=== PATIENT | female | born 1950 | race Caucasian/White ===

== ENCOUNTER 2017-09-06 20:25 | Emergency (ER) | payer BC, MEDICARE ==
--- NOTE | 2017-09-06 21:59 | ER Document Report ---
ED Medical Screen (RME) - General Chief Complaint: High Blood Sugar Stated Complaint: POSSIBLE HIGH GLUCOSE Time Seen by Provider: 09/06/17 21:56 Notes: 67-year-old female, chief complaint of accidentally taking the wrong insulin, she states she normally takes 50 units of Lantus and then takes NovoLog at meals , she states that she took her 50 units of Lantus but then excellently took an additional 50 units of Lantus instead of taking her NovoLog, checked her sugar and found it was almost 500, took 25 more of NovoLog, now she has no idea where sugar is. She denies nausea vomiting, dizziness, lightheadedness. She states also earlier this morning she slipped and fell on her buttocks. She states she might have bumped her head, denies headache, passing out, loss of consciousness , she states the only area of pain she has is in her lower back at this time. She denies numbness, incontinence. TRAVEL OUTSIDE OF THE [place] IN LAST 30 DAYS: No - Related Data Allergies/Adverse Reactions: Sulfa (Sulfonamide Antibiotics) Allergy (Verified 03/17/16 12:29) celecoxib [From Celebrex] Adverse Reaction (Intermediate, Verified 03/17/16 12: 29) Hives Past Medical History - Past Medical History Cardiac Medical History: Reports: Hx Hypercholesterolemia Denies: Hx Coronary Artery Disease, Hx Heart Attack, Hx Hypertension Pulmonary Medical History: Denies: Hx Asthma, Hx Bronchitis, Hx COPD, Hx Pneumonia, Hx Tuberculosis Neurological Medical History: Denies: Hx Cerebrovascular Accident, Hx Seizures Endocrine Medical History: Reports: Hx Diabetes Mellitus Type 1, 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 GI Medical History: Reports: Hx Gastroesophageal Reflux Disease Musculoskeltal Medical History: Reports Hx Arthritis - all joints Psychiatric Medical History: Reports: Hx Depression Infectious Medical History: Past Surgical History: Reports: Hx Hysterectomy, Hx Orthopedic Surgery - ankle and knee surgery - Immunizations Hx Diphtheria, Pertussis, Tetanus Vaccination: Yes Physical Exam - Vital signs Vitals: Temp Pulse Resp BP Pulse Ox 98.0 F 90 20 156/88 H 98 09/06/17 20:40 09/06/17 20:40 09/06/17 20:40 09/06/17 20:40 09/06/17 20:40 - General General appearance: Appears well In distress: None - Back Back: Tender - Generalized tenderness in the lumbar area, nonspecific, no saddle anesthesia, normal distal neurovascular exam, ambulates without difficulty Course - Vital Signs Vital signs: Temp Pulse Resp BP Pulse Ox 98.0 F 90 20 156/88 H 98 09/06/17 20:40 09/06/17 20:40 09/06/17 20:40 09/06/17 20:40 09/06/17 20:40 Doctor's Discharge - Discharge Referrals: JOVAN GORMAN MD [Primary Care Provider] - Follow up as needed
[2017-09-06 22:39] LABS: ABSOLUTE BASOPHILS # (AUTO) 0.1 10^3/uL (0.0-0.2); ABSOLUTE EOSINOPHILS # (AUTO) 0.5 10^3/uL (0.0-0.6); ABSOLUTE LYMPHOCYTES (AUTO) 2.3 10^3/uL (0.5-4.7); ABSOLUTE MONOCYTES (AUTO) 0.7 10^3/uL (0.1-1.4); ABSOLUTE NEUT (AUTO) 3.6 10^3/uL (1.7-8.2); BASOPHILS % (AUTO) 1.1 % (0-2); EOSINOPHILS % (AUTO) 6.8 % (0-6); HEMATOCRIT 42.8 % (36.0-47.0); HEMOGLOBIN 15.2 g/dL (12.0-15.5); LYMPHOCYTES % (AUTO) 31.8 % (13-45); MEAN CORPUSCULAR HEMOGLOBIN 30.6 pg (27.0-33.4); MEAN CORPUSCULAR HGB CONC 35.4 g/dL (32.0-36.0); MEAN CORPUSCULAR VOLUME 86 fl (80-97); MONOCYTES % (AUTO) 9.2 % (3-13); PLATELET COUNT 298 10^3/uL (150-450); RED BLOOD COUNT 4.96 10^6/uL (3.72-5.28); RED CELL DISTRIBUTION WIDTH 12.9 % (11.5-14.0); SEGMENTED NEUTROPHILS % (AUTO) 51.1 % (42-78); TOTAL CELLS COUNTED % (AUTO) 100 %; WHITE BLOOD COUNT 7.1 10^3/uL (4.0-10.5)
--- NOTE | 2017-09-06 22:43 | ER Document Report ---
ED Blood Sugar Problem - General Chief Complaint: High Blood Sugar Stated Complaint: POSSIBLE HIGH GLUCOSE Time Seen by Provider: 09/06/17 21:56 Notes: 67-year-old female patient emergency department chief complaint of blood sugar issues. Patient has history of diabetes. Takes long-acting insulin as well as short-acting insulin. Recently she had a change of her prescription. She was taking the long-acting insulin and a pen form but was switched to a bottle dispensing. Got her short acting and long-acting insulin mixed up. Ended up taking 80 units of long-acting insulin instead of her 50 units. Patient was concerned that she may have low blood sugar and is afraid to go to sleep. Currently her blood sugar is reading high. She did inject the additional 30 units at 4 PM today. Denies any other major symptoms other than feeling a little bit dizzy. Denies any chest pain, shortness of breath, fever, other issues at this time. TRAVEL OUTSIDE OF THE [place] IN LAST 30 DAYS: No - HPI Onset: This afternoon - Related Data Allergies/Adverse Reactions: Sulfa (Sulfonamide Antibiotics) Allergy (Verified 03/17/16 12:29) celecoxib [From Celebrex] Adverse Reaction (Intermediate, Verified 03/17/16 12: 29) Hives Past Medical History - General Information source: Patient - Social History Smoking Status: Unknown if Ever Smoked Cigarette use (# per day): No Frequency of alcohol use: None Drug Abuse: None Lives with: Alone Family History: Reviewed & Not Pertinent - Past Medical History Cardiac Medical History: Reports: Hx Hypercholesterolemia Denies: Hx Coronary Artery Disease, Hx Heart Attack, Hx Hypertension Pulmonary Medical History: Denies: Hx Asthma, Hx Bronchitis, Hx COPD, Hx Pneumonia, Hx Tuberculosis Neurological Medical History: Denies: Hx Cerebrovascular Accident, Hx Seizures Endocrine Medical History: Reports: Hx Diabetes Mellitus Type 1, 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 GI Medical History: Reports: Hx Gastroesophageal Reflux Disease Musculoskeltal Medical History: Reports Hx Arthritis - all joints Psychiatric Medical History: Reports: Hx Depression Infectious Medical History: Past Surgical History: Reports: Hx Hysterectomy, Hx Orthopedic Surgery - ankle and knee surgery - Immunizations Hx Diphtheria, Pertussis, Tetanus Vaccination: Yes Hx Pneumococcal Vaccination: 12/26/10 Review of Systems - Review of Systems Constitutional: No symptoms reported EENT: No symptoms reported Cardiovascular: No symptoms reported Respiratory: No symptoms reported Gastrointestinal: No symptoms reported Genitourinary: No symptoms reported Female Genitourinary: No symptoms reported Musculoskeletal: No symptoms reported Skin: No symptoms reported Hematologic/Lymphatic: No symptoms reported Neurological/Psychological: No symptoms reported Physical Exam - Vital signs Vitals: Temp Pulse Resp BP Pulse Ox 98.0 F 90 20 156/88 H 98 09/06/17 20:40 09/06/17 20:40 09/06/17 20:40 09/06/17 20:40 09/06/17 20:40 Interpretation: Normal - General General appearance: Appears well, Alert - HEENT Head: Normocephalic, Atraumatic Eyes: Normal Pupils: PERRL - Respiratory Respiratory status: No respiratory distress Chest status: Nontender Breath sounds: Normal Chest palpation: Normal - Cardiovascular Rhythm: Regular Heart sounds: Normal auscultation Murmur: No - Abdominal Inspection: Normal Distension: No distension Bowel sounds: Normal Tenderness: Nontender Organomegaly: No organomegaly - Back Back: Normal, Nontender - Extremities General upper extremity: Normal inspection, Nontender, Normal color, Normal ROM , Normal temperature General lower extremity: Normal inspection, Nontender, Normal color, Normal ROM , Normal temperature, Normal weight bearing. No: Dean's sign - Neurological Neuro grossly intact: Yes Cognition: Normal Orientation: AAOx4 Gianni Coma Scale Eye Opening: Spontaneous [place] Coma Scale Verbal: Oriented Gianni Coma Scale Motor: Obeys Commands Gianni Coma Scale Total: 15 Speech: Normal Motor strength normal: LUE, RUE, LLE, RLE Sensory: Normal - Psychological Associated symptoms: Normal affect, Normal mood - Skin Skin Temperature: Warm Skin Moisture: Dry Skin Color: Normal Course - Re-evaluation Re-evalutation: 67-year-old female patient with concerns for accidental overdose of her Lantus. Patient is 6 hours after injection and blood sugar still 346. Unlikely patient is suffering from any significant hypoglycemic spells. Patient is awake and alert in no acute distress. Review of the x-rays of her L-spine unremarkable. Patient has her own glucometer with appropriate amount of lancets as well as test strips. Patient states that she is comfortable checking her own blood sugar tonight. At this time I would encourage her to continue to eat and drink as normal. If blood sugar begins to drop she should drink juice and eat carbs. Patient is okay with this plan. Do not feel patient needs to be admitted for observation as patient's blood sugar is quite elevated unlikely to drop precipitously. Patient is comfortable with this plan. Now concerns in my mind at this time for DKA. 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 It would probably be smith to go ahead and have a snack at this time before you go to bed. An appropriate snack at this time would be something containing carbohydrates. Maybe a peanut butter sandwich and a glass of milk or juice. Your blood sugar currently is high in the 340 range. I believe you will be fine throughout the night and night. I would not be overly concerned about hypoglycemia, however due to the slight increase in the long-acting insulin today it would be smith to check your blood sugar at least every 4 hours. If blood sugars are still elevated in the morning I would resume your regular insulin schedule. If Blood sugars begin to drop under 100 you should check your blood sugar every hour and have another snack. If unable to get your blood sugar to go up please return or call 911. Referrals: JOVAN GORMAN MD [Primary Care Provider] - Follow up as needed
[2017-09-06 23:04] LABS: ANION GAP 12 (5-19); BLOOD UREA NITROGEN 21 mg/dL (7-20); CALCIUM 10.1 mg/dL (8.4-10.2); CARBON DIOXIDE 28 mmol/L (22-30); CHLORIDE 102 mmol/L (98-107); GLUCOSE 346 mg/dL (75-110); POTASSIUM 3.8 mmol/L (3.6-5.0)
[2017-09-06] MEDS ORDERED: ACETAMINOPHEN 325 MG TABLET PO ONE (23:29)
[2017-09-07 00:02] VITALS: BP 173/83
[2017-09-07 00:02] LABS: APPEARANCE,URINE CLEAR; BILIRUBIN,URINE NEGATIVE (NEGATIVE); COLOR,URINE YELLOW; GLUCOSE, URINE >=500 mg/dL (NEGATIVE); KETONES,URINE NEGATIVE (NEGATIVE); LEUKOCYTE ESTERASE,URINE NEGATIVE (NEGATIVE); NITRITE,URINE NEGATIVE (NEGATIVE); PROTEIN,URINE NEGATIVE (NEGATIVE); URINE SPECIFIC GRAVITY 1.027; UROBILINOGEN,URINE NEGATIVE mg/dL (<2.0)
--- NOTE | 2017-09-07 08:12 | RADIOLOGY REPORT (SQ) ---
EXAM DESCRIPTION: L SPINE WHOLE COMPLETED DATE/TIME: 09/06/2017 10:30 pm REASON FOR STUDY: fall, pain COMPARISON: None. NUMBER OF VIEWS: Five views including obliques. TECHNIQUE: AP, lateral, oblique, and sacral radiographic images acquired of the lumbar spine. LIMITATIONS: None. FINDINGS: MINERALIZATION: Normal. SEGMENTATION: Normal. No transitional anatomy. ALIGNMENT: Normal. VERTEBRAE: Maintained height. No fracture or worrisome bone lesion. DISCS: Preserved height. No significant osteophytes or end plate irregularity. POSTERIOR ELEMENTS: Pedicles and facets are intact. No pars defect or posterior arch defects. Degen erative changes are identified in the facet articulations at the L4 and L5 levels. HARDWARE: None in the spine. PARASPINAL SOFT TISSUES: Normal. PELVIS: Intact as visualized. No fractures or worrisome bone lesions. Bony sclerosis is identified a t the level of the SI joints consistent with degenerative changes. OTHER: No other significant finding. IMPRESSION: No significant vertebral compression or disc space reduction. No evidence for fracture. Degenerative changes as noted above TECHNICAL DOCUMENTATION: JOB ID: [id number]- All Rights Reserved Reading location - IP/workstation name: [email or web address]
== END 2017-09-07 00:16 | disposition home or self-care (01) ==
LOC: ER 20:25
DX: E11.9 Type 2 diabetes mellitus without complications (principal); Z79.4 Long term (current) use of insulin; R42 Dizziness and giddiness; E78.00 Pure hypercholesterolemia, unspecified; K21.9 Gastro-esophageal reflux disease without esophagitis; Z88.2 Allergy status to sulfonamides; Z90.710 Acquired absence of both cervix and uterus
CPT/HCPCS: 99284; 36415; 82962; 85025; 80048; 81001; 72110; A9270

== ENCOUNTER 2017-12-04 03:23 | Inpatient (IN) | payer MEDICARE, MEDICAID ==
[2017-12-04] MEDS ORDERED: NORMAL SALINE 1000 ML 1,000 ML IV ONE ×2 (03:54→04:48)
[2017-12-04] MEDS ORDERED: HYDROMORPHONE HCL INJ/PF 2 MG/ML AMPULE IV ONE ×2 (03:54→06:25)
[2017-12-04] MEDS ORDERED: ONDANSETRON HCL INJ/PF 4 MG/2 ML SDV IV ONE (03:54)
--- NOTE | 2017-12-04 03:57 | ER Document Report ---
ED GI/ - General Mode of Arrival: Ambulatory Information source: Patient TRAVEL OUTSIDE OF THE [place] IN LAST 30 DAYS: No <RODRIGO BAKER - Last Filed: 12/04/17 03:53> <NATI ELLISON - Last Filed: 12/04/17 06:27> - General Chief Complaint: Nausea/Vomiting Stated Complaint: NAUSEA/VOMITING Time Seen by Provider: 12/04/17 03:46 Notes: 67-year-old female that presents to the emergency department today with complaints of vomiting with associated abdominal pain. Patient states that at about 2000 last night she began vomiting and her "stomach was hard". Patient states that after vomiting approximately 8 times she developed this right-sided abdominal pain. Patient states she had a bowel movement 90 minutes prior to arrival which was "a little hard" but seemingly normal. Patient denies any fevers. (RODRIGO BAKER) - Related Data Allergies/Adverse Reactions: Sulfa (Sulfonamide Antibiotics) Allergy (Verified 03/17/16 12:29) celecoxib [From Celebrex] Adverse Reaction (Intermediate, Verified 03/17/16 12: 29) Hives Past Medical History - General Information source: Patient, [facility] Records - Social History Smoking Status: Never Smoker Cigarette use (# per day): No Frequency of alcohol use: None Drug Abuse: None Lives with: Family Family History: Reviewed & Not Pertinent - Past Medical History Cardiac Medical History: Reports: Hx Hypercholesterolemia Endocrine Medical History: Reports: 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 GI Medical History: Reports: Hx Gastroesophageal Reflux Disease Musculoskeletal Medical History: Reports Hx Arthritis - all joints Psychiatric Medical History: Reports: Hx Depression Infectious Medical History: Past Surgical History: Reports: Hx Hysterectomy, Hx Orthopedic Surgery - ankle and bilateral knee replacements surgery - Immunizations Hx Diphtheria, Pertussis, Tetanus Vaccination: Yes Hx Pneumococcal Vaccination: 12/26/10 <RODRIGO BAKER - Last Filed: 12/04/17 03:53> Review of Systems - Review of Systems Constitutional: denies: Fever EENT: No symptoms reported Cardiovascular: No symptoms reported Respiratory: No symptoms reported Gastrointestinal: See HPI, Abdominal pain, Nausea, Vomiting. denies: Diarrhea Genitourinary: No symptoms reported Female Genitourinary: No symptoms reported Musculoskeletal: No symptoms reported Skin: No symptoms reported Hematologic/Lymphatic: No symptoms reported Neurological/Psychological: No symptoms reported -: Yes All other systems reviewed and negative <RODRIGO BAKER - Last Filed: 12/04/17 03:53> Physical Exam <RODRIGO BAKER - Last Filed: 12/04/17 03:53> <NATI ELLISON - Last Filed: 12/04/17 06:27> - Vital signs Vitals: Temp Pulse Resp BP Pulse Ox 97.6 F 86 18 155/87 H 97 12/04/17 03:29 12/04/17 03:29 12/04/17 03:29 12/04/17 03:29 12/04/17 03:29 - Notes Notes: Physical Exam: General: Alert, appears mildly uncomfortable. HEENT: Normocephalic. Atraumatic. PERRL. Extraocular movements intact. Oropharynx clear. Dry mucous membranes. Neck: Supple. Non-tender. Respiratory: No respiratory distress. Clear and equal breath sounds bilaterally. Cardiovascular: Regular rate and rhythm. Abdominal: Obese. Right sided abdominal tenderness from the RUQ down to the RLQ , all starting after vomiting several times. No distension. Normal Bowel Sounds. Back: Non-tender. No deformity or step off. Extremities: Moves all four extremities. Upper extremities: Normal inspection. Normal ROM. Lower extremities: Normal inspection. No edema. Normal ROM. Neurological: Normal cognition. AAOx4. Normal speech. Psychological: Normal affect. Normal Mood. Skin: Warm. Dry. Normal color. (RODRIGO BAKER) Course <RODRIGO BAKER - Last Filed: 12/04/17 03:53> - Laboratory Result Diagrams: 12/04/17 03:46 12/04/17 03:46 - Diagnostic Test Radiology reviewed: Image reviewed, Reports reviewed - Appendicolith with distended inflamed appendix. Acute appendicitis. - EKG Interpretation by Me EKG shows normal: Sinus rhythm, [place], Intervals, QRS Complexes, ST-T Waves Rate: Normal - 82 Rhythm: NSR [place]/QRS: LAHB/LAFB Voltage: Consistant with LVH When compared to previous EKG there are: No significant change - Consults Dr. Rodriguez Time consulted: 06:10 Consulted provider: will see as inpatient - Dr. ariana Herbert requests I have the hospitalist see the patient and admit her and start her medical management prior to surgery this morning. Dr. Griffiths Time consulted: 06:15 Consulted provider: will come to ER - I did explain to Dr. Griffiths that doctor ariana Herbert had requested that the hospitalist admit the patient and begin her medical management prior to her going to the operating room. <NATI ELLISON - Last Filed: 12/04/17 06:27> - Re-evaluation Re-evalutation: 12/04/17 06:26 The patient has acute appendicitis. Her last meal was about 1 PM yesterday afternoon which is now 17 hours ago, and she has been vomiting and having dry heaves quite a lot since then. (NATI ELLISON) - Vital Signs Vital signs: Temp Pulse Resp BP Pulse Ox 97.6 F 86 20 173/85 H 98 12/04/17 03:29 12/04/17 03:29 12/04/17 05:01 12/04/17 05:01 12/04/17 05:01 - Laboratory Laboratory results interpreted by me: 12/04/17 12/04/17 12/04/17 03:43 03:46 03:46 WBC 18.2 H Hgb 16.2 H Seg Neutrophils % 84.3 H Lymphocytes % 9.2 L Absolute Neutrophils 15.3 H Carbon Dioxide 21 L BUN 21 H Est GFR (Non-Af Amer) 53 L Glucose 424 H* Hemoglobin A1c % Urine Glucose (UA) >=500 H Urine Ketones 20 H 12/04/17 03:46 WBC Hgb Seg Neutrophils % Lymphocytes % Absolute Neutrophils Carbon Dioxide BUN Est GFR (Non-Af Amer) Glucose Hemoglobin A1c % 10.1 H Urine Glucose (UA) Urine Ketones Discharge <RODRIGO BAKER - Last Filed: 12/04/17 03:53> <NATI ELLISON - Last Filed: 12/04/17 06:27> - Discharge Clinical Impression: Poorly controlled diabetes mellitus, High blood pressure associated with diabetes Appendicitis Qualifiers: Appendicitis type: acute appendicitis Acute appendicitis type: unspecified acute appendicitis type Qualified Code(s): K35.80 - Unspecified acute appendicitis Leukocytosis Qualifiers: Leukocytosis type: unspecified Qualified Code(s): D72.829 - Elevated white blood cell count, unspecified Hyperglycemia due to type 2 diabetes mellitus Qualifiers: Diabetes mellitus terminal make up operator insulin use: with terminal make up operator use Qualified Code(s): E11.65 - Type 2 diabetes mellitus with hyperglycemia Condition: Stable Referrals: [facility] [Provider Group] - Follow up as needed Scribe Attestation: 12/04/17 04:50 I personally performed the services described in the documentation, reviewed and edited the documentation which was dictated to the scribe in my presence, and it accurately records my words and actions. (NATI ELLISON) Scribe Documentation - Scribe Written by Scribe:: Arlene Malhotra, 12/04/2017 [id number] acting as scribe for :: Isaac <RODRIGO BAKER - Last Filed: 12/04/17 03:53>
[2017-12-04 04:02] LABS: ABSOLUTE BASOPHILS # (AUTO) 0.1 10^3/uL (0.0-0.2); ABSOLUTE EOSINOPHILS # (AUTO) 0.1 10^3/uL (0.0-0.6); ABSOLUTE LYMPHOCYTES (AUTO) 1.7 10^3/uL (0.5-4.7); ABSOLUTE MONOCYTES (AUTO) 1.1 10^3/uL (0.1-1.4); ABSOLUTE NEUT (AUTO) 15.3 10^3/uL (1.7-8.2); BASOPHILS % (AUTO) 0.3 % (0-2); EOSINOPHILS % (AUTO) 0.4 % (0-6); HEMATOCRIT 45.9 % (36.0-47.0); HEMOGLOBIN 16.2 g/dL (12.0-15.5); LYMPHOCYTES % (AUTO) 9.2 % (13-45); MEAN CORPUSCULAR HEMOGLOBIN 30.6 pg (27.0-33.4); MEAN CORPUSCULAR HGB CONC 35.3 g/dL (32.0-36.0); MEAN CORPUSCULAR VOLUME 87 fl (80-97); MONOCYTES % (AUTO) 5.8 % (3-13); PLATELET COUNT 350 10^3/uL (150-450); RED BLOOD COUNT 5.28 10^6/uL (3.72-5.28); RED CELL DISTRIBUTION WIDTH 13.1 % (11.5-14.0); SEGMENTED NEUTROPHILS % (AUTO) 84.3 % (42-78); TOTAL CELLS COUNTED % (AUTO) 100 %; WHITE BLOOD COUNT 18.2 10^3/uL (4.0-10.5)
[2017-12-04 04:13] LABS: APPEARANCE,URINE CLEAR; BILIRUBIN,URINE NEGATIVE (NEGATIVE); COLOR,URINE YELLOW; GLUCOSE, URINE >=500 mg/dL (NEGATIVE); KETONES,URINE 20 mg/dL (NEGATIVE); LEUKOCYTE ESTERASE,URINE NEGATIVE (NEGATIVE); NITRITE,URINE NEGATIVE (NEGATIVE); PROTEIN,URINE NEGATIVE (NEGATIVE); URINE SPECIFIC GRAVITY 1.015; UROBILINOGEN,URINE NEGATIVE mg/dL (<2.0)
[2017-12-04 04:40] LABS: ALANINE AMINOTRANSFERASE 27 U/L (9-52); ALBUMIN 4.4 g/dL (3.5-5.0); ALKALINE PHOSPHATASE 74 U/L (38-126); ANION GAP 18 (5-19); ASPARTATE AMINO TRANSFERASE 23 U/L (14-36); BILIRUBIN,DIRECT 0.4 mg/dL (0.0-0.4); BILIRUBIN,TOTAL 0.9 mg/dL (0.2-1.3); BLOOD UREA NITROGEN 21 mg/dL (7-20); CALCIUM 10.1 mg/dL (8.4-10.2); CARBON DIOXIDE 21 mmol/L (22-30); CHLORIDE 98 mmol/L (98-107); CREATINE KINASE 45 U/L (30-135); POTASSIUM 4.3 mmol/L (3.6-5.0); TOTAL PROTEIN 7.3 g/dL (6.3-8.2)
[2017-12-04 04:48] LABS: GLUCOSE 424 mg/dL (75-110)
[2017-12-04 04:51] LABS: CREATINE KINASE MB 0.53 ng/mL (<4.55)
[2017-12-04 04:53] LABS: TROPONIN I < 0.012 ng/mL
[2017-12-04] MEDS ORDERED: PIPERACILLIN/TAZOBACTAM 3.375 GM VIAL IV ONE (06:04)
[2017-12-04] MEDS ORDERED: INSULIN REG, HUMAN 100 UNIT/ML 3 ML VIAL (PYX) IV ONE (06:13)
--- NOTE | 2017-12-04 06:20 | RADIOLOGY REPORT (SQ) ---
CLINICAL DATA: 67-year-old female with diffuse abdominal pain TECHNICAL DATA: Axial CT imaging of the abdomen and pelvis was performed without intravenous contrast. Sagittal and coronal reconstructed images were then performed. The CT study is performed according to ALARA (as low as reasonably achievable) or ALARA/IMAGE GENTLY, with automatic adjustment of mA and/or kV according to patient size. Comparison: None FINDINGS: Lung bases: The lung bases are clear. Liver:The liver is normal in size and configuration. No focal hepatic abnormalities are identified. Liver attenuation is within normal limits on this unenhanced study. Spleen:The spleen is normal is size, configuration and attenuation. No focal splenic abnormalities are appreciated on this unenhanced scan. Gallbladder and bile duct: The gallbladder is surgically absent. There is no biliary ductal dilatation. Pancreas: The pancreas is grossly normal in size and configuration. Adrenal Glands:The adrenal glands are normal in size and configuration. Kidneys:The kidneys are normal in size and configuration. There is no evidence of hydronephrosis. There are calcifications associated with both kidneys which appear to be vascular in nature. No ignacia nephrolithiasis is identified. No definite solid or cystic renal mass lesions are identified on this unenhanced study. Stomach:The stomach is grossly normal. There is a very small hiatal hernia. Bowel:The bowel gas pattern is non specific and non obstructive. There is a mildly distended loop of small bowel in the right hemiabdomen likely related to a localized ileus. Appendix: There is a dilated tubular fluid-filled structure in the right lower quadrant posterior to the cecum with surrounding mesenteric inflammation consistent with acute appendicitis. There are radiopaque densities as well as lucencies within the appendiceal lumen likely representing appendicoliths. The appendix measures 1.4 cm in diameter. Free air:There is no evidence of free air. Free fluid: There is no evidence of free fluid. Vasculature: The aorta is normal in caliber and contour. The inferior vena cava is grossly unremarkable. There are mild atherosclerotic calcifications along the abdominal aorta and iliac arteries. Lymphadenopathy: No pathologic lymphadenopathy is identified. Bladder: The bladder is well distended and smooth in contour. Reproductive: The uterus is surgically absent. Bones: No acute osseous abnormalities are identified. Soft tissues: No focal soft tissue abnormalities are identified. IMPRESSION: 1. CT findings consistent with acute appendicitis as described above. There is no evidence of periappendiceal abscess or rupture. Appendicoliths are noted within the appendiceal lumen. 2. Remote cholecystectomy and hysterectomy. These critical findings were discussed with Dr. Gray on 12/04/2017 at approximately 5:10 AM central time
[2017-12-04] MEDS ORDERED: BUPIVACAINE HCL 0.5 % INJ/PF 30 ML SDV ONE (07:32)
[2017-12-04] MEDS ORDERED: NORMAL SALINE 1000 ML 1,000 ML IV PRN ×2 (07:42→08:41)
[2017-12-04] MEDS ORDERED: ACETAMINOPHEN 325 MG TABLET PO PRN (07:42)
[2017-12-04] MEDS ORDERED: ONDANSETRON HCL INJ/PF 4 MG/2 ML SDV IV PRN ×3 (07:42→11:01)
[2017-12-04] MEDS ORDERED: DEXTROSE 50%-WATER 25 GM/50 ML DISP.SYRIN IV PRN ×3 (07:48→08:35)
[2017-12-04] MEDS ORDERED: DEXTROSE 40% GEL 15 GM TUBE PO PRN ×3 (07:48→08:35)
[2017-12-04] MEDS ORDERED: GLUCAGON,HUMAN RECOMB 1 MG INJ IM PRN (07:48)
[2017-12-04] MEDS ORDERED: HUM INSULIN NPH/REG INSULIN HM 100 UNIT/1 ML 3 ML SUBCUT ONE (07:50)
[2017-12-04] MEDS ORDERED: ATORVASTATIN CALCIUM 40 MG TABLET PO SCH (08:00)
--- NOTE | 2017-12-04 08:31 | EKG REPORT ---
SEVERITY:- ABNORMAL ECG - SINUS RHYTHM LEFT ANTERIOR FASCICULAR BLOCK PROBABLE LVH WITH SECONDARY REPOL ABNRM CONSIDER ANTERIOR INFARCT : Confirmed by: Matt Mcintyre MD 04-Dec-2017 08:31:18
[2017-12-04] MEDS ORDERED: HYDROMORPHONE HCL INJ/PF 2 MG/ML AMPULE ONE (08:51)
[2017-12-04] MEDS ORDERED: FENTANYL CITRATE INJ/PF 100 MCG/2 ML AMPUL ONE (08:51)
[2017-12-04] MEDS ORDERED: EPHEDRINE SULFATE INJ 50 MG/1 ML AMPULE ONE (08:52)
[2017-12-04] MEDS ORDERED: PROPOFOL INJ 200 MG/20 ML VIAL IV ONE (08:52)
[2017-12-04] MEDS ORDERED: MIDAZOLAM 2 MG/2 ML INJ ONE (08:52)
[2017-12-04] MEDS ORDERED: ACETAMINOPHEN 1,000 MG/100 ML RTUPB IV ONE (08:52)
[2017-12-04] MEDS ORDERED: LIDOCAINE 2% INJ-PF (100 MG/5 ML) SYRINGE ONE (08:56)
[2017-12-04] MEDS ORDERED: SUCCINYLCHOLINE CHLORIDE INJ 200 MG/10 ML VIAL ONE (09:38)
[2017-12-04] MEDS ORDERED: ONDANSETRON HCL INJ/PF 4 MG/2 ML SDV ONE (09:38)
[2017-12-04] MEDS ORDERED: METOCLOPRAMIDE HCL INJ/PF 10 MG/2 ML SDV ONE (09:38)
[2017-12-04] MEDS ORDERED: GLYCOPYRROLATE 1 MG/5 ML SYRINGE ONE (09:38)
[2017-12-04] MEDS ORDERED: ROCURONIUM BROMIDE INJ 50 MG/5 ML VIAL IV ONE (09:38)
[2017-12-04] MEDS ORDERED: NEOSTIGMINE METHYLSULFATE 10 MG/10 ML VIAL ONE (09:38)
[2017-12-04] MEDS ORDERED: KETOROLAC TROMETHAMINE 60 MG/2 ML SDV ONE (09:38)
[2017-12-04] MEDS ORDERED: PROMETHAZINE HCL INJ 25 MG/1 ML VIAL IV PRN ×2 (09:46)
[2017-12-04] MEDS ORDERED: FENTANYL CITRATE INJ/PF 100 MCG/2 ML AMPUL IV PRN ×3 (09:46)
[2017-12-04] MEDS ORDERED: LABETALOL HCL INJ 20 MG/4 ML DISP.SYRIN IV PRN (09:46)
[2017-12-04] MEDS ORDERED: DIPHENHYDRAMINE HCL 50 MG/ML VIAL IV PRN (09:46)
[2017-12-04] MEDS ORDERED: MEPERIDINE HCL/PF INJ 25 MG/1 ML DISP.SYRIN IV PRN (09:46)
[2017-12-04] MEDS: DEXTROSE 5%-NORMAL SALINE 1,000 ML IV PRN ×2 (13:12→22:59)
--- NOTE | 2017-12-04 13:25 | OPERATIVE REPORT E ---
Operative Report NAME: BAUTISTA ROGERS : 1950 AGE: 67Y DATE OF SURGERY: 12/04/2017 ROOM: ED70 PREOPERATIVE DIAGNOSIS: ACUTE APPENDICITIS. POSTOPERATIVE DIAGNOSIS: ACUTE GANGRENOUS APPENDICITIS. OPERATION: Laparoscopic appendectomy. SURGEON: SUSY MONSON M.D. ANESTHESIA: General. INDICATION: This is a 67-year-old female with abdominal pain since yesterday. This was associated with nausea. She is a diabetic and she had a CT scan of the abdomen today which was compatible with acute appendicitis. She is tender in the right lower quadrant with elevated white count. DESCRIPTION OF PROCEDURE: After adequate general anesthesia, the patient was placed in supine position and the abdomen prepped and draped in the usual sterile fashion. Appropriate time-out was called. Next, an infraumbilical incision was made, the fascia entered and Ximena trocar inserted through the fascia into the abdominal cavity and CO2 insufflated through a trocar to a pressure of 15 mmHg. A 5 mm trocar placed in the suprapubic and a 12 mm in the left lower quadrant under direct vision. Next, the appendix was identified, noted to be quite gangrenous close to its base but not ruptured. The appendix was then lifted up and the mesoappendix divided and cauterized with the use of Harmonic sheers. The appendix was subsequently stapled right at the base with the use of a 45 mm blue load staple. The appendix was then pulled out through the 12 mm trocar port without contaminating the subcutaneous or skin. Next, the trocar was then put back and the appendiceal area inspected and there was a small bleeder noted. A 4th trocar was placed at the LLQ area to allow another grasper to be placed to have better exposure. The bleeder was eventually clipped and further cauterized with the Harmonic sheers. It took us a while to do this since the bleeder appeared to be going into the retroperitoneal area. After this was cauterized and clipped, no other bleeding noted. The area was further irrigated with about a total of 2 liters of saline and no more bleeding noted. A piece of Surgicel was then placed over the appendical area site and a #15 Beninese drainage catheter was then placed around the area of the appendix and brought out to the suprapubic port. The catheter was then anchored to the skin with 2-0 Prolene. Next, the fascial defect at the infra-umbilical area was then closed with figure -of-eight suture using 0-Vicryl. All the skin incisions were then closed with 4-0 Vicryl undyed. Sterile dressings were then placed over the operative sites. Needle, instrument, and sponge count were all correct. Estimated blood loss about 40 mL. The patient then brought to the recovery room in satisfactory condition. DICTATING PHYSICIAN: SUSY MONSON M.D. [id number] PHY#: [id number] ID: [id number] JOB#: [id number] ACCT: [id number] cc:SUSY MONSON M.D. > MTDD
[2017-12-04 13:27] LABS: ANION GAP 14 (5-19); BLOOD UREA NITROGEN 17 mg/dL (7-20); CALCIUM 8.7 mg/dL (8.4-10.2); CARBON DIOXIDE 22 mmol/L (22-30); CHLORIDE 102 mmol/L (98-107); GLUCOSE 366 mg/dL (75-110); POTASSIUM 4.2 mmol/L (3.6-5.0); SODIUM 137.7 mmol/L (137-145)
[2017-12-04] MEDS: PIPERACILLIN SODIUM/TAZOBACTAM 3.375 GM in NORMAL SALINE 100 ML IV SCH ×2 (14:10→21:33)
[2017-12-04] MEDS: INSULIN REG, HUMAN 100 UNIT/ML 3 ML VIAL (PYX) SUBCUT PRN ×3 (14:17→21:43)
--- NOTE | 2017-12-04 16:05 | PDOC H&P ---
History of Present Illness Admission Date/PCP: 12/04/17 08:22 JOVAN GORMAN MD History of Present Illness: BAUTISTA ROGERS is a 67 year old female who states that her illness began with body aches yesterday morning. By 1999 she had developed abdominal pain and a "hardness" in the area just superior to her umbilicus. She states that she then began vomiting. She states that she vomited several times. She denies that she has had any right lower quadrant pain. She came to the ED and was found to have appendicitis. Blood cultures have been drawn, and the patient has been given IV antibiotics. Dr. Rodriguez has been consulted for general surgery. He intends to take the patient to surgery later today. Past Medical History Cardiac Medical History: Reports: Hyperlipidema Endocrine Medical History: Reports: Diabetes Mellitus Type 2 - insulin dependent and oral meds GI Medical History: Reports: Gastroesophageal Reflux Disease Musculoskeltal Medical History: Reports: Arthritis - all joints Psychiatric Medical History: Reports: Depression Hematology: Denies: Anemia Past Surgical History Past Surgical History: Reports: Cholecystectomy, Hysterectomy, Orthopedic Surgery - ankle and bilateral knee replacements surgery Social History Lives with: Family Smoking Status: Never Smoker Frequency of Alcohol Use: Occasional Hx Recreational Drug Use: No Drugs: None Hx Prescription Drug Abuse: No - Advance Directive Resuscitation Status: Full Code Family History Family History: Reviewed & Not Pertinent Parental Family History Reviewed: Yes Children Family History Reviewed: Yes Sibling(s) Family History Reviewed.: Yes Medication/Allergy Home Medications: Insulin Lispro [Humalog] 15 units SQ MEALS 03/25/11 Venlafaxine HCl [Venlafaxine HCl ER] 1 tab PO QHS 10/27/11 Buspirone HCl [Buspar 5 mg Tablet] 7.5 mg PO Q12 12/04/17 Insulin Glargine,Hum.rec.anlog [Lantus Insulin 100 Unit/mL] 50 unit SQ QHS 12/04 Allergies/Adverse Reactions: Sulfa (Sulfonamide Antibiotics) Allergy (Verified 12/04/17 06:41) celecoxib [From Celebrex] Adverse Reaction (Intermediate, Verified 12/04/17 06: 41) Hives Review of Systems Constitutional: PRESENT: other - myalgias. ABSENT: chills, fatigue, fever(s), weakness Eyes: ABSENT: visual disturbances Ears: ABSENT: hearing changes Nose, Mouth, and Throat: ABSENT: headache(s), sore throat, vertigo Cardiovascular: ABSENT: chest pain, dyspnea on exertion, orthropnea, palpitations Respiratory: ABSENT: cough, dyspnea, sputum Gastrointestinal: PRESENT: abdominal pain, bloating, nausea, vomiting. ABSENT: constipation, diarrhea Genitourinary: ABSENT: difficulty urinating, dysuria, hematuria Musculoskeletal: ABSENT: back pain, deformity, joint swelling Integumentary: ABSENT: lesions, rash, wounds Neurological: ABSENT: abnormal gait, abnormal speech, confusion, frequent falls , paresthesias, syncope, tingling Psychiatric: ABSENT: anxiety, depression, suicidal ideation Endocrine: ABSENT: cold intolerance, heat intolerance, polyphagia, polyuria Hematologic/Lymphatic: ABSENT: easy bleeding, easy bruising, lymphadenopathy Physical Exam Vital Signs: Temp Pulse Resp BP Pulse Ox 98.1 F 112 H 20 117/70 93 12/04/17 13:00 12/04/17 13:00 12/04/17 13:00 12/04/17 13:00 12/04/17 15:43 Pulse Oximeter Continuous Start: 12/04/17 12: 59 Freq: RTQ4 Status: Active Document 12/04/17 15:43 LDA (Rec: 12/04/17 15:44 LDA [id number]) Pulse Oximetry Assessment Oxygen Saturation (92-100) 93 Oxygen Delivery Method Room Air Equipment Usage Initial Set Up Continuous Pulse Oximeter 24 Hour Charge Charge Now Continuous SpO2 Machine # [id number] Intake & Output 12/03/17 12/04/17 12/05/17 06:59 06:59 06:59 Intake Total 4750 Output Total 1945 Balance 2805 Weight 90.8 kg General appearance: PRESENT: no acute distress, cooperative Head exam: PRESENT: atraumatic, normocephalic Eye exam: PRESENT: EOMI, PERRLA. ABSENT: conjunctival injection, scleral icterus Ear exam: PRESENT: normal external ear exam. ABSENT: bleeding, drainage Mouth exam: PRESENT: moist, tongue midline. ABSENT: laceration Throat exam: PRESENT: tonsillar exudate. ABSENT: tonsillar erythema, tonsillogmegaly Neck exam: ABSENT: lymphadenopathy, meningismus, thyromegaly Respiratory exam: PRESENT: other - No increased work of breathing.. ABSENT: rales, rhonchi, wheezes Cardiovascular exam: PRESENT: RRR. ABSENT: gallop, rubs, systolic murmur Pulses: PRESENT: other - Diminished distal pulses. GI/Abdominal exam: PRESENT: distended, hypoactive bowel sounds, soft, tenderness - periumbilical. ABSENT: hernia, mass Extremities exam: ABSENT: clubbing, joint swelling, tenderness Musculoskeletal exam: PRESENT: normal inspection. ABSENT: deformity, dislocation, tenderness Neurological exam: PRESENT: alert, awake, oriented to person, oriented to place , oriented to time, oriented to situation, CN II-XII grossly intact. ABSENT: motor sensory deficit Psychiatric exam: ABSENT: anxious, depressed Skin exam: PRESENT: dry, intact, warm Results Laboratory Results: 12/04/17 12:50 12/04/17 12:50 Sodium 137.7 Potassium 4.2 Chloride 102 Carbon Dioxide 22 Anion Gap 14 BUN 17 Creatinine 1.06 Est GFR ( Amer) > 60 Est GFR (Non-Af Amer) 52 L Glucose 366 H Calcium 8.7 12/04/17 12/04/17 12/04/17 03:43 03:46 12:50 WBC 18.2 H RBC 5.28 Hgb 16.2 H Hct 45.9 MCV 87 MCH 30.6 MCHC 35.3 RDW 13.1 Plt Count 350 Seg Neutrophils % 84.3 H Lymphocytes % 9.2 L Monocytes % 5.8 Eosinophils % 0.4 Basophils % 0.3 Absolute Neutrophils 15.3 H Absolute Lymphocytes 1.7 Absolute Monocytes 1.1 Absolute Eosinophils 0.1 Absolute Basophils 0.1 Sodium 137.7 Potassium 4.2 Chloride 102 Carbon Dioxide 22 Anion Gap 14 BUN 17 Creatinine 1.06 Est GFR (Non-Af Amer) 52 L Glucose 366 H Calcium 8.7 Urine Color YELLOW Urine Appearance CLEAR Urine pH 7.0 Ur Specific [place] 1.015 Urine Protein NEGATIVE Urine Glucose (UA) >=500 H Urine Ketones 20 H Urine Blood NEGATIVE Urine Nitrite NEGATIVE Urine Bilirubin NEGATIVE Urine Urobilinogen NEGATIVE Ur Leukocyte Esterase NEGATIVE Urine WBC (Auto) 1 Urine RBC (Auto) 0 U Hyaline Cast (Auto) 1 Squamous Epi Cells Auto 1 Urine Mucus (Auto) RARE Urine Ascorbic Acid NEGATIVE Impressions: Abdomen/Pelvis CT 12/04/17 05:16 IMPRESSION: 1. CT findings consistent with acute appendicitis as described above. There is no evidence of periappendiceal abscess or rupture. Appendicoliths are noted within the appendiceal lumen. 2. Remote cholecystectomy and hysterectomy. These critical findings were discussed with Dr. Gray on 12/04/2017 at approximately 5:10 AM central time Assessment & Plan - Diagnosis (1) Appendicitis Qualifiers: Appendicitis type: acute appendicitis Acute appendicitis type: unspecified acute appendicitis type Qualified Code(s): K35.80 - Unspecified acute appendicitis Is this a current diagnosis for this admission?: Yes Plan: Dr. Rodriguez has been consulted for general surgery. She has been started on IV antibiotics. 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 Will give 70/30 and SSI. Monitor and restart the patient 's home insulin regimen once she is again taking PO. (3) Essential hypertension Is this a current diagnosis for this admission?: Yes Plan: Monitor blood pressures and treat as necessary. (4) Leukocytosis Qualifiers: Leukocytosis type: unspecified Qualified Code(s): D72.829 - Elevated white blood cell count, unspecified Is this a current diagnosis for this admission?: Yes Plan: Blood cultures x 2 taken. IV antibiotics started. (5) Hyperlipidemia Qualifiers: Hyperlipidemia type: mixed hyperlipidemia Qualified Code(s): E78.2 - Mixed hyperlipidemia Plan: Restart statin as at home when patient is taking PO. - Time Time Spent: Greater than 70 Minutes Medications reviewed and adjusted accordingly: Yes
[2017-12-04] MEDS: MORPHINE SULFATE 10 MG/ML INJ IV PRN (19:55)
[2017-12-04] MEDS: ATORVASTATIN CALCIUM 40 MG TABLET PO SCH (21:35)
[2017-12-04] MEDS ORDERED: INSULIN REG, HUMAN 100 UNIT/ML 3 ML VIAL (PYX) SUBCUT PRN (21:59)
[2017-12-04] MEDS ORDERED: INSULIN REG, HUMAN 100 UNIT/ML 3 ML VIAL (PYX) SUBCUT SCH (22:00)
[2017-12-05] MEDS: OXYCODONE-ACETAMINOPHEN 5-325 MG TABLET PO PRN ×3 (00:43→21:05)
[2017-12-05] MEDS: PIPERACILLIN SODIUM/TAZOBACTAM 3.375 GM in NORMAL SALINE 100 ML IV SCH ×2 (03:34→08:45)
[2017-12-05] MEDS: MORPHINE SULFATE 10 MG/ML INJ IV PRN ×5 (04:00→18:11)
[2017-12-05 06:24] LABS: ABSOLUTE EOSINOPHILS # (AUTO) 0.3 10^3/uL (0.0-0.6); ABSOLUTE LYMPHOCYTES (AUTO) 1.7 10^3/uL (0.5-4.7); ABSOLUTE MONOCYTES (AUTO) 0.7 10^3/uL (0.1-1.4); ABSOLUTE NEUT (AUTO) 6.3 10^3/uL (1.7-8.2); BASOPHILS % (AUTO) 0.3 % (0-2); EOSINOPHILS % (AUTO) 2.8 % (0-6); HEMATOCRIT 34.6 % (36.0-47.0); LYMPHOCYTES % (AUTO) 18.9 % (13-45); MEAN CORPUSCULAR HEMOGLOBIN 30.7 pg (27.0-33.4); MEAN CORPUSCULAR VOLUME 88 fl (80-97); MONOCYTES % (AUTO) 7.4 % (3-13); PLATELET COUNT 212 10^3/uL (150-450); RED BLOOD COUNT 3.94 10^6/uL (3.72-5.28); SEGMENTED NEUTROPHILS % (AUTO) 70.6 % (42-78); TOTAL CELLS COUNTED % (AUTO) 100 %
[2017-12-05 06:25] LABS: HEMOGLOBIN 12.1 g/dL (12.0-15.5)
[2017-12-05 06:39] LABS: ALBUMIN 2.7 g/dL (3.5-5.0); ANION GAP 5 (5-19); BLOOD UREA NITROGEN 16 mg/dL (7-20); CALCIUM 8.3 mg/dL (8.4-10.2); CARBON DIOXIDE 25 mmol/L (22-30); CHLORIDE 105 mmol/L (98-107); GLUCOSE 293 mg/dL (75-110); POTASSIUM 3.6 mmol/L (3.6-5.0); SODIUM 135.2 mmol/L (137-145); TOTAL PROTEIN 5.1 g/dL (6.3-8.2)
[2017-12-05 06:40] LABS: ALANINE AMINOTRANSFERASE 29 U/L (9-52); ALKALINE PHOSPHATASE 51 U/L (38-126); ASPARTATE AMINO TRANSFERASE 26 U/L (14-36); BILIRUBIN,DIRECT 0.3 mg/dL (0.0-0.4); BILIRUBIN,TOTAL 0.8 mg/dL (0.2-1.3); PHOSPHORUS 2.1 mg/dL (2.5-4.5)
[2017-12-05] MEDS: DEXTROSE 5%-NORMAL SALINE 1,000 ML IV PRN (07:25)
[2017-12-05] MEDS ORDERED: MAG HYDROX/AL HYDROX/SIMETH SUSP 30 ML UDCUP ONE (08:42)
[2017-12-05] MEDS: INSULIN REG, HUMAN 100 UNIT/ML 3 ML VIAL (PYX) SUBCUT PRN ×2 (08:56→18:10)
[2017-12-05] MEDS ORDERED: MAG HYDROX/AL HYDROX/SIMETH SUSP 30 ML UDCUP PO PRN (08:57)
[2017-12-05] MEDS ORDERED: (PENDING PHARMACY ID) (Buspirone Hcl [Buspar 5 Mg Tablet] 7.5 MG) PO SCH (10:00)
[2017-12-05] MEDS ORDERED: VENLAFAXINE HCL PO SCH (10:00)
[2017-12-05] MEDS: DOCUSATE SODIUM 100 MG CAPSULE PO SCH ×2 (11:26→18:11)
[2017-12-05] MEDS ORDERED: VENLAFAXINE HCL 75 MG CAP.SR.24H PO SCH ×2 (11:30→22:00)
[2017-12-05] MEDS ORDERED: INSULIN LISPRO 15 UNIT SQ SCH (12:00)
[2017-12-05] MEDS: INSULIN LISPRO 100 UNIT/ML 3 ML VIAL SUBCUT SCH ×2 (14:45→18:09)
[2017-12-05] MEDS: BUSPIRONE HCL 10 MG TABLET PO SCH ×2 (14:54→21:06)
--- NOTE | 2017-12-05 16:37 | PDOC PROGRESS REPORT ---
Subjective Progress Note for:: 12/05/17 Subjective:: The patient is sitting up in a chair at bedside. She has no new complaints. She would like to go home, but per surgery she continues to have quite a bit of output from her drain. Reason For Visit: ACUTE APPENDICITIS,DIABETES MELLITUS Physical Exam Vital Signs: Temp Pulse Resp BP Pulse Ox 98.5 F 88 16 122/81 96 12/05/17 07:37 12/05/17 07:37 12/05/17 07:37 12/05/17 07:37 12/05/17 07:37 Pulse Oximeter Continuous Start: 12/04/17 12: 59 Freq: RTQ4 Status: Complete Document 12/04/17 15:43 LDA (Rec: 12/04/17 15:44 LDA [id number]) Pulse Oximetry Assessment Oxygen Saturation (92-100) 93 Oxygen Delivery Method Room Air Equipment Usage Initial Set Up Continuous Pulse Oximeter 24 Hour Charge Charge Now Continuous SpO2 Machine # [id number] Intake & Output 12/04/17 12/05/17 12/06/17 06:59 06:59 06:59 Intake Total 9563 100 Output Total 3575 Balance 5988 100 Weight 96.7 kg General appearance: PRESENT: no acute distress, cooperative, morbidly obese Respiratory exam: PRESENT: other - No increased work of breathing.. ABSENT: rales, rhonchi, wheezes Cardiovascular exam: PRESENT: RRR. ABSENT: gallop, rubs, systolic murmur GI/Abdominal exam: PRESENT: hypoactive bowel sounds, soft, tenderness. ABSENT: hernia, mass Extremities exam: ABSENT: clubbing, full ROM, pedal edema, tenderness Musculoskeletal exam: PRESENT: normal inspection. ABSENT: deformity, dislocation, tenderness Neurological exam: PRESENT: alert, awake, oriented to person, oriented to place , oriented to time, oriented to situation Psychiatric exam: PRESENT: appropriate affect, normal mood Skin exam: PRESENT: dry, intact, warm Results Laboratory Results: 12/05/17 05:24 12/05/17 05:24 12/05/17 12/05/17 05:24 05:24 WBC 9.0 RBC 3.94 Hgb 12.1 D Hct 34.6 L MCV 88 MCH 30.7 MCHC 35.0 RDW 13.0 Plt Count 212 Seg Neutrophils % 70.6 Lymphocytes % 18.9 Monocytes % 7.4 Eosinophils % 2.8 Basophils % 0.3 Absolute Neutrophils 6.3 Absolute Lymphocytes 1.7 Absolute Monocytes 0.7 Absolute Eosinophils 0.3 Absolute Basophils 0.0 Sodium 135.2 L Potassium 3.6 Chloride 105 Carbon Dioxide 25 Anion Gap 5 BUN 16 Creatinine 1.13 Est GFR ( Amer) 58 L Est GFR (Non-Af Amer) 48 L Glucose 293 H Calcium 8.3 L Phosphorus 2.1 L Magnesium 1.6 Total Bilirubin 0.8 AST 26 ALT 29 Alkaline Phosphatase 51 Total Protein 5.1 L Albumin 2.7 L Impressions: Abdomen/Pelvis CT 12/04/17 05:16 IMPRESSION: 1. CT findings consistent with acute appendicitis as described above. There is no evidence of periappendiceal abscess or rupture. Appendicoliths are noted within the appendiceal lumen. 2. Remote cholecystectomy and hysterectomy. These critical findings were discussed with Dr. Gray on 12/04/2017 at approximately 5:10 AM central time Assessment & Plan - Diagnosis (1) Appendicitis Qualifiers: Appendicitis type: acute appendicitis Acute appendicitis type: unspecified acute appendicitis type Qualified Code(s): K35.80 - Unspecified acute appendicitis Is this a current diagnosis for this admission?: Yes Plan: S/P appendectomy. Still with quite a bit of drainage. 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 Will restart Lantus at home dose now. (3) Essential hypertension Is this a current diagnosis for this admission?: Yes Plan: Blood pressures are stable. (4) Leukocytosis Qualifiers: Leukocytosis type: unspecified Qualified Code(s): D72.829 - Elevated white blood cell count, unspecified Is this a current diagnosis for this admission?: Yes Plan: Leukocytosis resolving. Blood cultures x 2 have had no growth. (5) Hyperlipidemia Qualifiers: Hyperlipidemia type: mixed hyperlipidemia Qualified Code(s): E78.2 - Mixed hyperlipidemia Is this a current diagnosis for this admission?: Yes Plan: Continue statin as at home. - Time Time Spent with patient: 25-34 minutes Medications reviewed and adjusted accordingly: Yes
--- NOTE | 2017-12-05 17:24 | PDOC PROGRESS REPORT ---
Subjective Progress Note for:: 12/05/17 Reason For Visit: ACUTE APPENDICITIS,DIABETES MELLITUS Patient reporting hiccups; no bowel movement 2 days; has not walked in the halls ; is voiding. Physical Exam Vital Signs: Temp Pulse Resp BP Pulse Ox 98.5 F 88 16 122/81 96 12/05/17 07:37 12/05/17 07:37 12/05/17 07:37 12/05/17 07:37 12/05/17 07:37 Pulse Oximeter Continuous Start: 12/04/17 12: 59 Freq: RTQ4 Status: Complete Document 12/04/17 15:43 LDA (Rec: 12/04/17 15:44 LDA [id number]) Pulse Oximetry Assessment Oxygen Saturation (92-100) 93 Oxygen Delivery Method Room Air Equipment Usage Initial Set Up Continuous Pulse Oximeter 24 Hour Charge Charge Now Continuous SpO2 Machine # [id number] Intake & Output 12/04/17 12/05/17 12/06/17 06:59 06:59 06:59 Intake Total 9563 100 Output Total 3575 Balance 5988 100 Weight 96.7 kg General appearance: PRESENT: no acute distress GI/Abdominal exam: PRESENT: other - Soft, appropriately tender; drain with significant serosanguineous volume as of this morning Results Laboratory Results: 12/05/17 05:24 12/05/17 05:24 12/05/17 12/05/17 05:24 05:24 WBC 9.0 RBC 3.94 Hgb 12.1 D Hct 34.6 L MCV 88 MCH 30.7 MCHC 35.0 RDW 13.0 Plt Count 212 Seg Neutrophils % 70.6 Lymphocytes % 18.9 Monocytes % 7.4 Eosinophils % 2.8 Basophils % 0.3 Absolute Neutrophils 6.3 Absolute Lymphocytes 1.7 Absolute Monocytes 0.7 Absolute Eosinophils 0.3 Absolute Basophils 0.0 Sodium 135.2 L Potassium 3.6 Chloride 105 Carbon Dioxide 25 Anion Gap 5 BUN 16 Creatinine 1.13 Est GFR ( Amer) 58 L Est GFR (Non-Af Amer) 48 L Glucose 293 H Calcium 8.3 L Phosphorus 2.1 L Magnesium 1.6 Total Bilirubin 0.8 AST 26 ALT 29 Alkaline Phosphatase 51 Total Protein 5.1 L Albumin 2.7 L Impressions: Abdomen/Pelvis CT 12/04/17 05:16 IMPRESSION: 1. CT findings consistent with acute appendicitis as described above. There is no evidence of periappendiceal abscess or rupture. Appendicoliths are noted within the appendiceal lumen. 2. Remote cholecystectomy and hysterectomy. These critical findings were discussed with Dr. Gray on 12/04/2017 at approximately 5:10 AM central time Assessment & Plan - Diagnosis (1) Appendicitis Qualifiers: Appendicitis type: acute appendicitis Acute appendicitis type: unspecified acute appendicitis type Qualified Code(s): K35.80 - Unspecified acute appendicitis Is this a current diagnosis for this admission?: Yes Plan: Impression: Patient doing reasonably well status post laparoscopic appendectomy for acute appendicitis; still draining serosanguineous fluid from the operative drain Medications: 1. Leave drain in 2. Increase physical activity, ambulating; discouraged narcotic use; 3. We will reassess later: Likely home in a.m.
[2017-12-05] MEDS: ATORVASTATIN CALCIUM 40 MG TABLET PO SCH (21:07)
[2017-12-05] MEDS ORDERED: INSULIN GLARGINE,HUM.REC.ANLOG 300 UNIT/3 ML INSULN.PEN SUBCUT SCH (22:00)
[2017-12-06] MEDS: BUSPIRONE HCL 10 MG TABLET PO SCH (05:45)
[2017-12-06] MEDS: OXYCODONE-ACETAMINOPHEN 5-325 MG TABLET PO PRN (05:45)
[2017-12-06] MEDS: INSULIN REG, HUMAN 100 UNIT/ML 3 ML VIAL (PYX) SUBCUT PRN (07:58)
[2017-12-06] MEDS: INSULIN LISPRO 100 UNIT/ML 3 ML VIAL SUBCUT SCH (07:58)
[2017-12-06 10:20] LABS: ABSOLUTE BASOPHILS # (AUTO) 0.1 10^3/uL (0.0-0.2); ABSOLUTE EOSINOPHILS # (AUTO) 0.6 10^3/uL (0.0-0.6); ABSOLUTE LYMPHOCYTES (AUTO) 1.6 10^3/uL (0.5-4.7); ABSOLUTE MONOCYTES (AUTO) 0.5 10^3/uL (0.1-1.4); BASOPHILS % (AUTO) 0.8 % (0-2); EOSINOPHILS % (AUTO) 8.4 % (0-6); HEMATOCRIT 34.1 % (36.0-47.0); LYMPHOCYTES % (AUTO) 24.2 % (13-45); MEAN CORPUSCULAR HEMOGLOBIN 30.9 pg (27.0-33.4); MEAN CORPUSCULAR HGB CONC 35.2 g/dL (32.0-36.0); MEAN CORPUSCULAR VOLUME 88 fl (80-97); PLATELET COUNT 232 10^3/uL (150-450); RED BLOOD COUNT 3.88 10^6/uL (3.72-5.28); SEGMENTED NEUTROPHILS % (AUTO) 58.6 % (42-78); TOTAL CELLS COUNTED % (AUTO) 100 %; WHITE BLOOD COUNT 6.8 10^3/uL (4.0-10.5)
--- NOTE | 2017-12-06 10:54 | PDOC DISCHARGE SUMMARY ---
General - Admit/Disc Date/PCP Admission Date/Primary Care Provider: 12/04/17 08:22 JOVAN GORMAN MD Discharge Date: 12/06/17 - Discharge Diagnosis (1) Appendicitis Is this a current diagnosis for this admission?: Yes (2) High blood pressure associated with diabetes Is this a current diagnosis for this admission?: Yes (3) Poorly controlled diabetes mellitus Is this a current diagnosis for this admission?: Yes (4) Hyperlipidemia Is this a current diagnosis for this admission?: Yes - Additional Information Resuscitation Status: Full Code Discharge Diet: As Tolerated, Diabetic Discharge Activity: Activity As Tolerated Home Medications: Insulin Lispro [Humalog] 15 units SQ MEALS 03/25/11 Venlafaxine HCl [Venlafaxine HCl ER] 1 tab PO QHS 10/27/11 Buspirone HCl [Buspar 5 mg Tablet] 7.5 mg PO Q12 12/04/17 Insulin Glargine,Hum.rec.anlog [Lantus Insulin 100 Unit/mL] 50 unit SQ QHS 12/04 Atorvastatin Calcium [Lipitor 40 mg Tablet] 40 mg PO QHS tablet 12/06/17 History of Present Illness History of Present Illness: BAUTISTA ROGERS is a 67 year old female Who states that her illness began with body aches yesterday morning. By 1999 she had developed abdominal pain and a "hardness" in the area just superior to her umbilicus. She states that she then began vomiting. She states that she vomited several times. She denies that she has had any right lower quadrant pain. She came to the ED and was found to have appendicitis. Blood cultures have been drawn, and the patient has been given IV antibiotics. Dr. Rodriguez has been consulted for general surgery. He intends to take the patient to surgery later today. Hospital Course Hospital Course: Patient was admitted with abdominal pain and found to have acute appendicitis. Patient was found to have an acute gangrenous appendicitis. She was seen by the general surgeon and had laparoscopic appendectomy done. Please see the operative report for full details. Patient has had a pretty uneventful postop. She had a drain in place but this was removed prior to discharge. She has remained hemodynamically stable and has been seen by the surgeon today prior to discharge. No further interventions been planned and with hemodynamic stability patient is been discharged home for outpatient follow-up. Physical Exam Vital Signs: Temp Pulse Resp BP Pulse Ox 98.8 F 88 16 141/54 H 96 12/06/17 08:37 12/06/17 08:37 12/06/17 08:37 12/06/17 08:37 12/06/17 08:37 Pulse Oximeter Continuous Start: 12/04/17 12: 59 Freq: RTQ4 Status: Complete Document 12/04/17 15:43 LDA (Rec: 12/04/17 15:44 LDA [email or web address]) Pulse Oximetry Assessment Oxygen Saturation (92-100) 93 Oxygen Delivery Method Room Air Equipment Usage Initial Set Up Continuous Pulse Oximeter 24 Hour Charge Charge Now Continuous SpO2 Machine # [id number] Intake & Output 12/05/17 12/06/17 12/07/17 06:59 06:59 06:59 Intake Total 9563 1997 Output Total 3575 3200 Balance 5988 -1202 Weight 96.7 kg 98.8 kg General appearance: PRESENT: no acute distress, well-developed, well-nourished Head exam: PRESENT: atraumatic, normocephalic Eye exam: PRESENT: conjunctiva pink, EOMI, PERRLA. ABSENT: scleral icterus Ear exam: PRESENT: normal external ear exam Mouth exam: PRESENT: moist, tongue midline Neck exam: ABSENT: carotid bruit, JVD, lymphadenopathy, thyromegaly Respiratory exam: PRESENT: clear to auscultation phillip. ABSENT: rales, rhonchi, wheezes Cardiovascular exam: PRESENT: RRR. ABSENT: diastolic murmur, rubs, systolic murmur Pulses: PRESENT: normal dorsalis pedis pul Vascular exam: PRESENT: normal capillary refill GI/Abdominal exam: PRESENT: normal bowel sounds, soft, tenderness - minimal. ABSENT: distended, guarding, mass, organolmegaly, rebound Rectal exam: PRESENT: deferred Extremities exam: PRESENT: full ROM. ABSENT: calf tenderness, clubbing, pedal edema Neurological exam: PRESENT: alert, awake, oriented to person, oriented to place , oriented to time, oriented to situation, CN II-XII grossly intact. ABSENT: motor sensory deficit Psychiatric exam: PRESENT: appropriate affect, normal mood. ABSENT: homicidal ideation, suicidal ideation Skin exam: PRESENT: dry, intact, warm. ABSENT: cyanosis, rash Results Laboratory Results: 12/06/17 09:53 12/05/17 05:24 12/06/17 09:53 WBC 6.8 RBC 3.88 Hgb 12.0 Hct 34.1 L MCV 88 MCH 30.9 MCHC 35.2 RDW 13.0 Plt Count 232 Seg Neutrophils % 58.6 Lymphocytes % 24.2 Monocytes % 8.0 Eosinophils % 8.4 H Basophils % 0.8 Absolute Neutrophils 4.0 Absolute Lymphocytes 1.6 Absolute Monocytes 0.5 Absolute Eosinophils 0.6 Absolute Basophils 0.1 Impressions: Abdomen/Pelvis CT 12/04/17 05:16 IMPRESSION: 1. CT findings consistent with acute appendicitis as described above. There is no evidence of periappendiceal abscess or rupture. Appendicoliths are noted within the appendiceal lumen. 2. Remote cholecystectomy and hysterectomy. These critical findings were discussed with Dr. Gray on 12/04/2017 at approximately 5:10 AM central time Qualifiers - * PATIENT BEING DISCHARGED WITH ANY OF THE FOLLOWING DIAGNOSIS: No Plan Time Spent: Less than 30 Minutes
[2017-12-06 11:16] VITALS: BP 117/70
--- NOTE | 2017-12-06 23:51 | PDOC PROGRESS REPORT ---
Subjective Progress Note for:: 12/06/17 Subjective:: Mild incisional pains Reason For Visit: ACUTE APPENDICITIS,DIABETES MELLITUS Physical Exam Vital Signs: Temp Pulse Resp BP Pulse Ox 98.8 F 88 16 117/70 96 12/06/17 11:00 12/06/17 11:00 12/06/17 11:00 12/06/17 11:00 12/06/17 11:00 Pulse Oximeter Continuous Start: 12/04/17 12: 59 Freq: RTQ4 Status: Complete Document 12/04/17 15:43 LDA (Rec: 12/04/17 15:44 LDA [email or web address]) Pulse Oximetry Assessment Oxygen Saturation (92-100) 93 Oxygen Delivery Method Room Air Equipment Usage Initial Set Up Continuous Pulse Oximeter 24 Hour Charge Charge Now Continuous SpO2 Machine # [id number] Intake & Output 12/05/17 12/06/17 12/07/17 06:59 06:59 06:59 Intake Total 9563 1998 Output Total 3575 3200 Balance 5988 -1202 Weight 96.7 kg 98.8 kg Exam: JOSÉ drain pulled out. Small amount of serosanguinous drainage. Hb same as yesterday at 12 All incision sites are clean and dry. Results Laboratory Results: 12/06/17 09:53 12/05/17 05:24 12/06/17 09:53 WBC 6.8 RBC 3.88 Hgb 12.0 Hct 34.1 L MCV 88 MCH 30.9 MCHC 35.2 RDW 13.0 Plt Count 232 Seg Neutrophils % 58.6 Lymphocytes % 24.2 Monocytes % 8.0 Eosinophils % 8.4 H Basophils % 0.8 Absolute Neutrophils 4.0 Absolute Lymphocytes 1.6 Absolute Monocytes 0.5 Absolute Eosinophils 0.6 Absolute Basophils 0.1 Impressions: Abdomen/Pelvis CT 12/04/17 05:16 IMPRESSION: 1. CT findings consistent with acute appendicitis as described above. There is no evidence of periappendiceal abscess or rupture. Appendicoliths are noted within the appendiceal lumen. 2. Remote cholecystectomy and hysterectomy. These critical findings were discussed with Dr. 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 Patient advised to take po advil or tylenol for pains No need to give antibiotics after discharge. Arrange ff up with the surgical clinic in 1-2 weeks
== END 2017-12-06 11:30 | disposition home or self-care (01) | DRG 343 ==
LOC: ER 03:23 → OBSVTOIN 08:22 → EH 08:22 → INTOOBSV 08:22 → 3W 12:55
PROVIDERS: ADMIT Internal Medicine; ATTEND Internal Medicine
PROC: 0DTJ4ZZ Resection of Appendix, Percutaneous Endoscopic Approach (ICD-10-PCS; principal; 2017-12-04 09:00)
DX: K35.80 Unspecified acute appendicitis (principal); E11.65 Type 2 diabetes mellitus with hyperglycemia; E78.2 Mixed hyperlipidemia; K21.9 Gastro-esophageal reflux disease without esophagitis; M19.90 Unspecified osteoarthritis, unspecified site; F32.9 Major depressive disorder, single episode, unspecified; Z79.84 Long term (current) use of oral hypoglycemic drugs; Z79.4 Long term (current) use of insulin; Z90.49 Acquired absence of other specified parts of digestive tract; Z90.710 Acquired absence of both cervix and uterus; Z96.653 Presence of artificial knee joint, bilateral; Z88.2 Allergy status to sulfonamides; Z88.8 Allergy status to other drugs, medicaments and biological substances
CPT/HCPCS: 36415; 74176; 80048; 80053; 81001; 82550; 82553; 82962; 83036; 83735; 840; 84100; 84484; 85025; 87040; 88304; 93005; 93010; 94762; 94799; 96361; 96374; 96375; 99285; J0131; J0330; J1170; J1815; J1885; J2001; J2250; J2270; J2405; J2543; J2704; J2765; J3010; J3490; J7030

== ENCOUNTER 2018-05-01 11:13 | Day surgery (SDC) | payer MEDICARE, MEDICAID ==
[~2018-05-01 11:13] MED LIST: PROPOFOL INJ 200 MG/20 ML VIAL IV ONE
[2018-05-01] MEDS ORDERED: INSULIN REG, HUMAN 100 UNIT/ML 3 ML VIAL (PYX) ONE (12:04)
--- NOTE | 2018-05-01 12:38 | Operative Report ---
Operative Report DATE OF SURGERY: 05/01/18 Operative Report: The risks benefits and alternatives of the procedure explained to the patient in detail and informed consent is obtained.A GIF Olympus video scope was inserted into the patient's mouth and hypopharynx, the esophagus is identified intubated and insufflated, the scope was then advanced through the esophagus stomach and duodenum, retroflexion maneuver is done, the esophagus stomach and first and second portions of the duodenum examined. PREOPERATIVE DIAGNOSIS: Gastroesophageal reflux disease, epigastric pain POSTOPERATIVE DIAGNOSIS: Gastritis status post biopsy rule out Helicobacter pylori OPERATION: EGD with biopsy SURGEON: SIMON WALKER ANESTHESIA: LMAC TISSUE REMOVED OR ALTERED: As noted above. COMPLICATIONS: None. ESTIMATED BLOOD LOSS: None. INTRAOPERATIVE FINDINGS: As noted above. PROCEDURE: Patient tolerated the procedure well. No immediate postprocedure complications are noted. Patient discharged in good condition. Discharge date 05/01/2018. Discharge diet: Regular. Discharge activity: Regular. 2-3-week follow-up to discuss findings. Patient is instructed to call the office or proceed to the emergency room should there be any further problems or questions. Wait on the pathology.
[2018-05-01] MEDS ORDERED: LACTATED RINGERS 1000 ML IV PRN (13:01)
[2018-05-01 13:18] VITALS: BP 156/90
== END 2018-05-01 13:15 | disposition home or self-care (01) ==
LOC: END 11:13
PROVIDERS: ATTEND Internal Medicine Gastroenterology
DX: K29.50 Unspecified chronic gastritis without bleeding (principal); K21.9 Gastro-esophageal reflux disease without esophagitis; E11.9 Type 2 diabetes mellitus without complications; Z79.84 Long term (current) use of oral hypoglycemic drugs; Z79.899 Other long term (current) drug therapy; Z79.4 Long term (current) use of insulin; Z88.8 Allergy status to other drugs, medicaments and biological substances; Z88.2 Allergy status to sulfonamides
CPT/HCPCS: 43239; 82962; 88342 ×2; 88305 ×2; A9270; J2704; 731; J1815

== ENCOUNTER 2018-05-06 10:42 | Observation (INO) | payer MEDICARE, MEDICAID ==
[2018-05-06] MEDS ORDERED: MORPHINE SULFATE 10 MG/ML INJ IV ONE (11:24)
--- NOTE | 2018-05-06 11:26 | ER Document Report ---
ED Medical Screen (RME) - General Chief Complaint: Chest Pain Stated Complaint: CHEST PAIN Time Seen by Provider: 05/06/18 11:17 Primary Care Provider: JOVAN GORMAN MD [Primary Care Provider] - Follow up as needed Mode of Arrival: Ambulatory Information source: Patient Notes: 68-year-old female with a history of diabetes presents emergency department with complaints of chest pain. She states that the pain as a pressure sensation located across the anterior chest. She states that the pain radiates to her bilateral shoulders. Is been present for the last 3 hours and constant. She denies any alleviating or exacerbating factors. She is having some associated shortness of breath. Patient states that she also has pain to the roof of her mouth, face, ears. She had an endoscopy done on Tuesday that showed "an irritated stomach lining." Patient took aspirin this morning. She denies a history of hypertension, coronary artery disease, family history of coronary artery disease, smoking. Patient states that she does have high cholesterol. I have greeted and performed a rapid initial assessment of this patient. A comprehensive ED assessment and evaluation of the patient, analysis of test results and completion of the medical decision making process will be conducted by additional ED providers. PHYSICAL EXAMINATION: GENERAL: Well-appearing, well-nourished and in no acute distress. HEAD: Atraumatic, normocephalic. EYES: Pupils equal round extraocular movements intact, conjunctiva are normal. ENT: Nares patent NECK: Normal range of motion LUNGS: No respiratory distress Musculoskeletal: Normal range of motion NEUROLOGICAL: Normal speech, normal gait. PSYCH: Normal mood, normal affect. SKIN: Warm, Dry, normal turgor, no rashes or lesions noted. TRAVEL OUTSIDE OF THE [place] 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 Renal/ Medical History: Denies: Hx Peritoneal Dialysis GI Medical History: Reports: Hx Gastroesophageal Reflux Disease Musculoskeltal Medical History: Reports Hx Arthritis - all joints Psychiatric Medical History: Reports: Hx Depression Infectious Medical History: Past Surgical History: Reports: Hx Cholecystectomy, Hx Hysterectomy, Hx Orthopedic Surgery - ankle and bilateral knee replacements surgery - Immunizations Hx Diphtheria, Pertussis, Tetanus Vaccination: Yes Physical Exam - Vital signs Vitals: Temp Pulse Resp BP Pulse Ox 97.7 F 83 20 191/97 H 98 05/06/18 11:08 05/06/18 11:08 05/06/18 11:08 05/06/18 11:08 05/06/18 11:08 Course - Vital Signs Vital signs: Temp Pulse Resp BP Pulse Ox 97.7 F 83 20 191/97 H 98 05/06/18 11:08 05/06/18 11:08 05/06/18 11:08 05/06/18 11:08 05/06/18 11:08 Doctor's Discharge - Discharge Referrals: JOVAN GORMAN MD [Primary Care Provider] - Follow up as needed
[2018-05-06 12:01] LABS: ABSOLUTE BASOPHILS # (AUTO) 0.1 10^3/uL (0.0-0.2); ABSOLUTE EOSINOPHILS # (AUTO) 0.4 10^3/uL (0.0-0.6); ABSOLUTE LYMPHOCYTES (AUTO) 1.7 10^3/uL (0.5-4.7); ABSOLUTE MONOCYTES (AUTO) 0.3 10^3/uL (0.1-1.4); ABSOLUTE NEUT (AUTO) 4.8 10^3/uL (1.7-8.2); BASOPHILS % (AUTO) 0.8 % (0-2); EOSINOPHILS % (AUTO) 5.6 % (0-6); HEMATOCRIT 49.9 % (36.0-47.0); HEMOGLOBIN 17.7 g/dL (12.0-15.5); MEAN CORPUSCULAR HEMOGLOBIN 30.2 pg (27.0-33.4); MEAN CORPUSCULAR HGB CONC 35.4 g/dL (32.0-36.0); MEAN CORPUSCULAR VOLUME 85 fl (80-97); MONOCYTES % (AUTO) 4.7 % (3-13); PLATELET COUNT 328 10^3/uL (150-450); RED BLOOD COUNT 5.85 10^6/uL (3.72-5.28); RED CELL DISTRIBUTION WIDTH 13.6 % (11.5-14.0); SEGMENTED NEUTROPHILS % (AUTO) 65.9 % (42-78); TOTAL CELLS COUNTED % (AUTO) 100 %; WHITE BLOOD COUNT 7.2 10^3/uL (4.0-10.5)
[2018-05-06] MEDS ORDERED: ASPIRIN 81 MG TABLET, CHEWABLE PO ONE (12:08)
[2018-05-06] MEDS ORDERED: NITROGLYCERIN 0.4 MG/TAB 25 TAB/BOTTLE SL ONE (12:09)
[2018-05-06 12:22] LABS: ALANINE AMINOTRANSFERASE 25 U/L (9-52); ALKALINE PHOSPHATASE 83 U/L (38-126); ANION GAP 14 (5-19); ASPARTATE AMINO TRANSFERASE 27 U/L (14-36); BILIRUBIN,DIRECT 0.3 mg/dL (0.0-0.4); BILIRUBIN,TOTAL 0.8 mg/dL (0.2-1.3); BLOOD UREA NITROGEN 18 mg/dL (7-20); CALCIUM 10.7 mg/dL (8.4-10.2); CARBON DIOXIDE 26 mmol/L (22-30); CHLORIDE 99 mmol/L (98-107); GLUCOSE 317 mg/dL (75-110); POTASSIUM 4.1 mmol/L (3.6-5.0); SODIUM 138.9 mmol/L (137-145); TOTAL PROTEIN 8.1 g/dL (6.3-8.2)
[2018-05-06] MEDS ORDERED: LORAZEPAM INJ 2 MG/1 ML VIAL IV ONE (12:25)
--- NOTE | 2018-05-06 12:33 | RADIOLOGY REPORT (SQ) ---
EXAM DESCRIPTION: CHEST SINGLE VIEW COMPLETED DATE/TIME: 05/06/2018 12:22 pm REASON FOR STUDY: chest pain COMPARISON: 03/17/2016 TECHNIQUE: Single frontal radiographic view of the chest acquired. NUMBER OF VIEWS: One view. LIMITATIONS: None. FINDINGS: LUNGS AND PLEURA: No pneumothorax. No consolidation or pleural effusion. MEDIASTINUM AND HILAR STRUCTURES: Stable. HEART AND VASCULAR STRUCTURES: Stable. BONES: No acute findings. HARDWARE: None in the chest. OTHER: No other significant finding. IMPRESSION: NO ACUTE FINDINGS. TECHNICAL DOCUMENTATION: JOB ID: [id number] [id number] 2010 [employer]- All Rights Reserved Reading location - IP/workstation name: [email or web address]
[2018-05-06] MEDS ORDERED: NITROGLYCERIN 2% OINTMENT 1 GM PACKET TP ONE (13:54)
--- NOTE | 2018-05-06 13:59 | ER Document Report ---
ED General - General Chief Complaint: Chest Pain Stated Complaint: CHEST PAIN Time Seen by Provider: 05/06/18 11:17 Primary Care Provider: JOVAN GORMAN MD [Primary Care Provider] - Follow up as needed Mode of Arrival: Ambulatory TRAVEL OUTSIDE OF THE [place] IN LAST 30 DAYS: No - HPI Patient complains to provider of: Chest pain Quality of pain: Pressure Severity: Severe Notes: Patient presents to the emergency department for evaluation of chest pain. It is left-sided with radiation to the region of her mouth. She describes it as a pressure. She has associated shortness of breath. She denies any associated nausea, diaphoresis, or near syncope. She does admit to some anxiety. This month is a 6-year anniversary of her 's . She has not had a cardiac workup in over 5 years. She is never had a heart catheterization. She is unsure as to what her blood sugars have been running as she lost her glucometer. - Related Data Allergies/Adverse Reactions: Sulfa (Sulfonamide Antibiotics) Allergy (Verified 05/06/18 10:42) Hives celecoxib [From Celebrex] Adverse Reaction (Intermediate, Verified 05/06/18 10:42) Hives Past Medical History - General Information source: Patient - Social History Smoking Status: Never Smoker Family History: Reviewed & Not Pertinent Patient has suicidal ideation: No Patient has homicidal ideation: No - Past Medical History Cardiac Medical History: Reports: Hx Hypercholesterolemia Denies: Hx Coronary Artery Disease, Hx Heart Attack, Hx Hypertension Pulmonary Medical History: Denies: Hx Asthma, Hx Bronchitis, Hx COPD, Hx Pneumonia Neurological Medical History: Denies: Hx Cerebrovascular Accident, Hx Seizures Endocrine Medical History: Reports: Hx Diabetes Mellitus Type 2 - insulin d ependent and oral meds Renal/ Medical History: Denies: Hx Peritoneal Dialysis GI Medical History: Reports: Hx Gastroesophageal Reflux Disease Musculoskeletal Medical History: Reports Hx Arthritis - all joints Psychiatric Medical History: Reports: Hx Depression Infectious Medical History: Past Surgical History: Reports: Hx Cholecystectomy, Hx Hysterectomy, Hx Orthopedic Surgery - ankle and bilateral knee replacements surgery - Immunizations Hx Diphtheria, Pertussis, Tetanus Vaccination: Yes Hx Pneumococcal Vaccination: 12/26/10 Review of Systems - Review of Systems Constitutional: No symptoms reported EENT: No symptoms reported Cardiovascular: See HPI Respiratory: See HPI Gastrointestinal: No symptoms reported Musculoskeletal: No symptoms reported Skin: No symptoms reported Neurological/Psychological: Depression, Anxiety Physical Exam - Vital signs Vitals: Temp Pulse Resp BP Pulse Ox 97.7 F 83 20 191/97 H 98 05/06/18 11:08 05/06/18 11:08 05/06/18 11:08 05/06/18 11:08 05/06/18 11:08 - General General appearance: Appears well In distress: None - HEENT Head: Normocephalic Pupils: PERRL - Respiratory Respiratory status: No respiratory distress Breath sounds: Normal - Cardiovascular Rhythm: Regular - Abdominal Inspection: Normal Bowel sounds: Normal Tenderness: Nontender - Extremities General upper extremity: Normal inspection General lower extremity: Normal inspection - Neurological Neuro grossly intact: Yes Orientation: AAOx4 - Psychological Associated symptoms: Other - Tearful when she discusses her Course - Re-evaluation Re-evalutation: 05/06/18 14:00 Patient presents emergency department for evaluation of chest pain. She had been given morphine by the triage doctor. She was given sublingual nitroglycerin with complete resolution of her pain. I did add nitroglycerin paste. The patient remained stable throughout the course of her stay. It is likely that this is significantly contributed to by anxiety but she does have multiple risk factors. Discussed anticoagulation with hospitalist, Dr. Jonas declines at this time. Will admit her for further care. - Vital Signs Vital signs: Temp Pulse Resp BP Pulse Ox 97.7 F 83 15 142/78 H 91 L 05/06/18 11:08 05/06/18 11:08 05/06/18 13:31 05/06/18 13:31 05/06/18 13:31 - Laboratory Result Diagrams: 05/06/18 11:45 05/06/18 11:45 Laboratory results interpreted by me: 05/06/18 05/06/18 11:45 11:45 RBC 5.85 H Hgb 17.7 H Hct 49.9 H Est GFR (Non-Af Amer) 55 L Glucose 317 H Calcium 10.7 H - Diagnostic Test Radiology reviewed: Image reviewed - EKG Interpretation by Pr EKG shows normal: Sinus rhythm Rate: Normal Rhythm: NSR [place]/QRS: Left axis deviation Additional EKG results interpreted by me: 05/06/18 14:01 LAFB, lateral ST and T wave changes concerning for LVH with strain versus lateral ischemia. No significant change when compared to prior study of November 2017. Discharge - Discharge Clinical Impression: Chest pain Condition: Fair Disposition: ADMITTED OBSERVATION Admitting Provider: [facility] Unit Admitted: Telemetry Referrals: JOVAN GORMAN MD [Primary Care Provider] - Follow up as needed
[2018-05-06] MEDS ORDERED: NITROGLYCERIN 0.4 MG/TAB 25 TAB/BOTTLE SL PRN (15:21)
[2018-05-06] MEDS ORDERED: ONDANSETRON 4 MG TAB.RAPDIS PO PRN (15:21)
--- NOTE | 2018-05-06 15:49 | PDOC H&P ---
History of Present Illness Admission Date/PCP: 05/06/18 14:06 JOVAN GORMAN MD Patient complains of: CHEST PAIN History of Present Illness: BAUTISTA ROGERS is a 68 year old female who presented to [facility] for chest pain. She has a PMH of GERD, MO, HLD, anxiety and depression. The patient states she began experiencing chest heaviness this morning that radiated to her shoulder and the 'roof of her mouth.' She took 162mg ASA and came to the hospital. The patient endorses a significant amount of stress because this month lema the 6 year anniversary of her 's passing. Upon arrival to the ED, the patient's EKG shows NSR with LVH. No ischemia or infarction. All lab work is relatively benign, including CBC, chemistry and cardiac enzymes. CXR normal, no cardiopulmonary pathology. The patient was given another 162mg ASA and 1 sublingual Nitroglycerin tablet. She was also given 1mg Ativan IV for self-reported anxiety. Following these treatments, the patient states her chest pain resolved. Plan to admit to hospitalist service for chest pain observation. Past Medical History Cardiac Medical History: Reports: Hyperlipidema Denies: Coronary Artery Disease, Myocardial Infarction, Hypertension Pulmonary Medical History: Denies: Asthma, Bronchitis, Chronic Obstructive Pulmonary Disease (COPD), Pneumonia Neurological Medical History: Denies: Seizures Endocrine Medical History: Reports: Diabetes Mellitus Type 2 - insulin dependent and oral meds GI Medical History: Reports: Gastroesophageal Reflux Disease Musculoskeltal Medical History: Reports: Arthritis - all joints Psychiatric Medical History: Reports: Depression Hematology: Denies: Anemia Past Surgical History Past Surgical History: Reports: Cholecystectomy, Hysterectomy, Orthopedic Surgery - ankle and bilateral knee replacements surgery Social History Information Source: Patient Lives with: Alone Smoking Status: Never Smoker Frequency of Alcohol Use: Occasional Hx Recreational Drug Use: No Drugs: None Hx Prescription Drug Abuse: No - Advance Directive Resuscitation Status: Full Code Family History Family History: Reviewed & Not Pertinent Parental Family History Reviewed: Yes Children Family History Reviewed: Yes Sibling(s) Family History Reviewed.: Yes Medication/Allergy Home Medications: Insulin Lispro [Humalog] 30 units SQ MEALS 03/25/11 Venlafaxine HCl [Venlafaxine HCl ER] 75 mg PO QAM 10/27/11 Buspirone HCl [Buspar 5 mg Tablet] 7.5 mg PO Q12 12/04/17 Insulin Glargine,Hum.rec.anlog [Lantus Insulin 100 Unit/mL] 60 unit SQ QAM 12/04/17 Turm/Ging/Cash/Yuc/Sanjiv/Brandi/Hor [Tumersaid Tablet] 1 each PO DAILY 04/28/18 Hum Insulin NPH/Reg Insulin Hm [Novolin 70-30 100 Unit/Ml Vial] 60 unit SQ QAM 05/06/18 Allergies/Adverse Reactions: Sulfa (Sulfonamide Antibiotics) Allergy (Verified 05/06/18 10:42) Hives celecoxib [From Celebrex] Adverse Reaction (Intermediate, Verified 05/06/18 10:42) Hives Review of Systems All systems: reviewed and no additional remarkable complaints except as stated Physical Exam Vital Signs: Temp Pulse Resp BP Pulse Ox 97.7 F 83 15 142/78 H 91 L 05/06/18 11:08 05/06/18 11:08 05/06/18 13:31 05/06/18 13:31 05/06/18 13:31 Intake & Output 05/05/18 05/06/18 05/07/18 06:59 06:59 06:59 Weight 85.6 kg General appearance: PRESENT: no acute distress, well-developed, well-nourished Head exam: PRESENT: atraumatic Eye exam: PRESENT: conjunctiva pink, PERRLA Mouth exam: PRESENT: moist, tongue midline Neck exam: PRESENT: full ROM Respiratory exam: PRESENT: clear to auscultation phillip, symmetrical, unlabored Cardiovascular exam: PRESENT: RRR, +S1, +S2 Pulses: PRESENT: normal radial pulses, normal dorsalis pedis pul Vascular exam: PRESENT: normal capillary refill GI/Abdominal exam: PRESENT: soft. ABSENT: distended, tenderness Rectal exam: PRESENT: deferred Extremities exam: PRESENT: full ROM Musculoskeletal exam: PRESENT: ambulatory, full ROM, normal inspection Neurological exam: PRESENT: alert, awake, oriented to person, oriented to place, oriented to time, oriented to situation Psychiatric exam: PRESENT: appropriate affect Skin exam: PRESENT: dry, intact, normal color Results Laboratory Results: 05/06/18 11:45 05/06/18 11:45 05/06/18 05/06/18 11:45 11:45 WBC 7.2 RBC 5.85 H Hgb 17.7 H Hct 49.9 H MCV 85 MCH 30.2 MCHC 35.4 RDW 13.6 Plt Count 328 Seg Neutrophils % 65.9 Lymphocytes % 23.0 Monocytes % 4.7 Eosinophils % 5.6 Basophils % 0.8 Absolute Neutrophils 4.8 Absolute Lymphocytes 1.7 Absolute Monocytes 0.3 Absolute Eosinophils 0.4 Absolute Basophils 0.1 Sodium 138.9 Potassium 4.1 Chloride 99 Carbon Dioxide 26 Anion Gap 14 BUN 18 Creatinine 1.00 Est GFR ( Amer) > 60 Est GFR (Non-Af Amer) 55 L Glucose 317 H Calcium 10.7 H Total Bilirubin 0.8 AST 27 ALT 25 Alkaline Phosphatase 83 Total Protein 8.1 Albumin 5.0 05/06/18 11:45 Troponin I < 0.012 Impressions: Chest X-Ray 05/06/18 11:24 IMPRESSION: NO ACUTE FINDINGS. Status: Imported from PACS Assessment & Plan - Diagnosis (1) Chest pain Is this a current diagnosis for this admission?: Yes Plan: Unclear etiology: cardiac vs. GERD vs. anxiety EKG shows NSR with LVH No ischemia or infarction CXR benign EKG in AM Cardiac enzymes q6h x 3 Daily PPI and PRN GI cocktail for GERD pathology PRN ativan for anxiety/agitation If no reoccurrence of chest pain and labs/EKG are normal, the patient may go home tomorrow (2) GERD (gastroesophageal reflux disease) Is this a current diagnosis for this admission?: Yes Plan: History of GERD Patient of Dr. Grubbs Recent EGD (within last calendar year) was normal Daily PPI PRN GI cocktail (maalox/viscous lidocaine) (3) Anxiety Is this a current diagnosis for this admission?: Yes Plan: History of anxiety Continue home dose anxiolytics PRN ativan for significant anxiety/agitation (4) Depression Is this a current diagnosis for this admission?: Yes Plan: History of depression Secondary to passing of 6yr ago - Time Time Spent: 30 to 50 Minutes Medications reviewed and adjusted accordingly: Yes Anticipated discharge: Home - Inpatient Certification Based on my medical assessment, after consideration of the patient's comorbidities, presenting symptoms, or acuity I expect that the services needed warrant INPATIENT care.: Yes I certify that my determination is in accordance with my understanding of Medicare's requirements for reasonable and necessary INPATIENT services [42 CFR 412.3e].: Yes Medical Necessity: Need For Continuous Telemetry Monitoring, Risk of Complication if Not Cared For in Hospital
[2018-05-06 16:52] LABS: CREATINE KINASE MB 1.35 ng/mL (<4.55)
[2018-05-06 16:57] LABS: TROPONIN I 0.063 ng/mL
[2018-05-06] MEDS: LANSOPRAZOLE 30 MG TAB.RAP.DR PO SCH (17:05)
[2018-05-06] MEDS ORDERED: ONDANSETRON HCL INJ/PF 4 MG/2 ML SDV ONE (17:11)
[2018-05-06] MEDS ORDERED: DEXTROSE 40% GEL 15 GM TUBE PO PRN ×2 (20:07)
[2018-05-06] MEDS ORDERED: DEXTROSE 50%-WATER 25 GM/50 ML DISP.SYRIN IV PRN ×2 (20:07)
[2018-05-06] MEDS ORDERED: GLUCAGON,HUMAN RECOMB 1 MG INJ IM PRN (20:07)
[2018-05-06] MEDS ORDERED: LABETALOL HCL INJ 20 MG/4 ML DISP.SYRIN IV PRN (20:10)
[2018-05-06] MEDS ORDERED: MORPHINE SULFATE 10 MG/ML INJ IV PRN ×3 (20:10)
[2018-05-06] MEDS ORDERED: ACETAMINOPHEN 325 MG TABLET PO PRN (20:10)
[2018-05-06] MEDS ORDERED: MAG HYDROX/AL HYDROX/SIMETH SUSP 30 ML UDCUP PO PRN (20:10)
[2018-05-06] MEDS ORDERED: MAGNESIUM HYDROXIDE SUSP 30 ML UDCUP PO PRN (20:10)
[2018-05-06] MEDS ORDERED: HYDRALAZINE HCL INJ/PF 20 MG/1 ML SDV IV PRN (20:10)
--- NOTE | 2018-05-06 20:11 | EKG REPORT ---
SEVERITY:- ABNORMAL ECG - SINUS OR ECTOPIC ATRIAL RHYTHM LEFT ANTERIOR FASCICULAR BLOCK PROBABLE LVH WITH SECONDARY REPOL ABNRM : Confirmed by: Gin Davis 06-May-2018 20:10:36
[2018-05-06] MEDS: ENOXAPARIN SODIUM INJ 30 MG/0.3 ML DISP.SYRIN SUBCUT SCH (22:27)
[2018-05-06] MEDS: INSULIN LISPRO 100 UNIT/ML 3 ML VIAL SUBCUT SCH (22:27)
[2018-05-06] MEDS: LORAZEPAM 1 MG TABLET PO PRN (22:27)
[2018-05-06 22:47] LABS: CREATINE KINASE MB 6.01 ng/mL (<4.55)
[2018-05-06 23:03] LABS: TROPONIN I 0.49 ng/mL
[2018-05-06] MEDS ORDERED: BUSPIRONE HCL 10 MG TABLET PO ONE (23:59)
[2018-05-07 05:06] LABS: HEMATOCRIT 41.3 % (36.0-47.0); MEAN CORPUSCULAR HEMOGLOBIN 30.4 pg (27.0-33.4); MEAN CORPUSCULAR HGB CONC 35.8 g/dL (32.0-36.0); MEAN CORPUSCULAR VOLUME 85 fl (80-97); PLATELET COUNT 274 10^3/uL (150-450); RED BLOOD COUNT 4.86 10^6/uL (3.72-5.28); RED CELL DISTRIBUTION WIDTH 13.5 % (11.5-14.0); WHITE BLOOD COUNT 8.1 10^3/uL (4.0-10.5)
[2018-05-07 05:11] LABS: HEMOGLOBIN 14.8 g/dL (12.0-15.5)
[2018-05-07 05:20] LABS: ANION GAP 10 (5-19); BLOOD UREA NITROGEN 20 mg/dL (7-20); CARBON DIOXIDE 29 mmol/L (22-30); CHLORIDE 100 mmol/L (98-107); CHOLESTEROL 209.42 mg/dL (0-200); GLUCOSE 262 mg/dL (75-110); PHOSPHORUS 4.3 mg/dL (2.5-4.5); SODIUM 139.2 mmol/L (137-145); TRIGLYCERIDES 231 mg/dL (<150)
[2018-05-07] MEDS: LANSOPRAZOLE 30 MG TAB.RAP.DR PO SCH (05:29)
[2018-05-07 05:31] LABS: DIRECT LDL 144 mg/dL (<100)
[2018-05-07 05:32] LABS: CREATINE KINASE MB 11.5 ng/mL (<4.55); TROPONIN I 2.01 ng/mL
[2018-05-07 05:43] LABS: VLDL CHOLESTEROL 46.2 mg/dL (10-31)
[2018-05-07] MEDS: LORAZEPAM 1 MG TABLET PO PRN (06:07)
[2018-05-07] MEDS: INSULIN LISPRO 100 UNIT/ML 3 ML VIAL SUBCUT SCH ×4 (07:40→15:13)
[2018-05-07] MEDS ORDERED: HUM INSULIN NPH/REG INSULIN HM 100 UNIT/1 ML 3 ML SUBCUT SCH (08:00)
[2018-05-07] MEDS ORDERED: INSULIN GLARGINE,HUM.REC.ANLOG 1,000 UNIT/10 ML UNIT SUBCUT SCH (08:00)
[2018-05-07] MEDS ORDERED: VENLAFAXINE HCL 75 MG CAP.SR.24H PO SCH (08:00)
[2018-05-07] MEDS: ENOXAPARIN SODIUM INJ 30 MG/0.3 ML DISP.SYRIN SUBCUT SCH (09:24)
[2018-05-07] MEDS ORDERED: ASPIRIN 81 MG TABLET, CHEWABLE PO SCH (10:00)
[2018-05-07] MEDS ORDERED: DOCUSATE SODIUM 100 MG CAPSULE PO SCH (10:00)
[2018-05-07] MEDS ORDERED: BUSPIRONE HCL 10 MG TABLET PO SCH (10:00)
[2018-05-07 11:14] LABS: CREATINE KINASE MB 13.4 ng/mL (<4.55)
[2018-05-07 11:18] LABS: TROPONIN I 3.37 ng/mL
--- NOTE | 2018-05-07 12:01 | RADIOLOGY REPORT (SQ) ---
EXAM DESCRIPTION: CTA CHEST COMPLETED DATE/TIME: 05/07/2018 11:15 am REASON FOR STUDY: evaluate for PE I20.0 UNSTABLE ANGINA COMPARISON: 2014. TECHNIQUE: CT scan of the chest performed using helical scanning technique with dynamic intravenous contrast injection. Images reviewed with lung, soft tissue and bone windows. Reconstructed coronal and sagittal MPR images reviewed. Additional 3 dimensional post-processing performed to develop Maximal Intensity Projection images (OR P). All images stored on PACS. All CT scanners at this facility use dose modulation, iterative reconstruction, and/or weight based d osing when appropriate to reduce radiation dose to as low as reasonably achievable (ALARA). [facility]: Dose Right [facility]: CareDose [facility]: Dose Right [facility]: Teradose 4D [facility]: ReadWave CONTRAST TYPE AND DOSE: contrast/concentration: Isovue 350.00 mg/ml; Total Contrast Delivered: 78.0 ml; Total Saline Delivered: 71.1 ml RENAL FUNCTION: Within acceptable limits. RADIATION DOSE: CT Rad equipment meets quality standard of care and radiation dose reduction techniq ues were employed. CTDIvol: 24.7 - 33.1 mGy. DLP: 870 mGy-cm. . LIMITATIONS: None. FINDINGS: LUNGS AND PLEURA: Chronic 8 mm right upper lobe nodule. No developing lung lesions. No a cute infiltrate or pleural fluid. No pneumothorax. AORTA AND GREAT VESSELS: Normal. HEART: No pericardial effusion. Moderate coronary calcification. PULMONARY ARTERIES: No emboli visualized in the main pulmonary arteries or the segmental branches. HILAR AND MEDIASTINAL STRUCTURES: No identified masses or abnormal nodes. HARDWARE: None in the chest. UPPER ABDOMEN: No significant findings. Limited exam. THYROID AND OTHER SOFT TISSUES: No masses. No adenopathy. BONES: No acute or significant finding. 3D MIPS: Confirm above findings. OTHER: No other significant finding. IMPRESSION: 1. No pulmonary embolus or aortic disease appreciated. 2. Coronary calcification. 3. No acute or suspicious chest findings. Lungs clear allowing for chronic and therefore presumably benign right upper lobe subcentimeter nodule. COMMENT: Quality ID # [id number]: Final reports with documentation of one or more dose reduction techniques (e.g., Automated exposure control, adjustment of the mA and/or kV according to patient size, use of iterative reconstruction technique) TECHNICAL DOCUMENTATION: JOB ID: [id number]- All Rights Reserved Reading location - IP/workstation name: [email or web address]
[2018-05-07] MEDS ORDERED: ASPIRIN 325 MG TABLET ONE (12:03)
[2018-05-07] MEDS ORDERED: ENOXAPARIN SODIUM INJ 100 MG/1 ML DISP.SYRIN SUBCUT SCH ×2 (12:30)
[2018-05-07] MEDS ORDERED: METOPROLOL TARTRATE 25 MG TABLET PO SCH (12:30)
[2018-05-07] MEDS ORDERED: ASPIRIN 325 MG TABLET PO ONE (12:30)
[2018-05-07 12:57] VITALS: BP 165/78
--- NOTE | 2018-05-07 14:11 | PDOC CONSULTATION ---
Consultation-Blank Consultation: CARDIOLOGY CONSULTATION by Dr. Raeann Davenport on 05/07/2018. Patient seen at 11 AM on 05/07/2018. REASON FOR CONSULTATION: Patient with chest pain and elevated troponin I and EKG changes. HISTORY OF PRESENT ILLNESS: The patient states that yesterday she started having sudden onset of jaw pain and pain in the roof of the mouth. This was very severe and was associated shortness of breath. The pain did increase with exertion. There was no palpitations or syncope. On further questioning the patient also states that since the last 3 months she has been having heartburn on an empty stomach or if she exerts herself. This is in the lower retrosternal area and in the epigastric area. The patient also has a history of GERD. 2 weeks ago the patient had an EGD, which showed gastritis but no other significant findings. The patient denies any such episodes in the past. She denies hypertension. She denies any PND orthopnea palpitations near syncope or syncope. Her CT scan of the chest is negative for pulmonary emboli. Her second EKG shows T inversion in the anterior leads. Which is much improved on the third EKG. At present the patient's chest pain-free. Although she is asymptomatic at present her troponins are rising. She has a history of diabetes mellitus. PAST MEDICAL HISTORY: The patient has a history of diabetes mellitus type 2 insulin-dependent. She denies hypertension. She states she was thought to have an AZ a few years ago when she had a ankle surgery, but later was told that it was not a myocardial infarction. She has no history of documented coronary artery disease. Until 3 months prior to onset of symptoms of exertional heartburn, she has not had any symptoms suggestive of angina. She has no history of asthma or COPD. No history of sleep apnea. No history of pulmonary embolism. No history of thyroid disease. She has a history of hyperlipidemia. There is no history of TIA CVA. There is no history of chronic kidney disease. PAST SURGICAL HISTORY: She has had a right ankle fracture surgery. Bilateral knee replacements. She also has had a cholecystectomy and appendectomy. FAMILY HISTORY: Is positive for diabetes mellitus, negative for premature coronary artery disease or sudden . ALLERGIES she is allergic to celecoxib SOCIAL HISTORY: The patient has never smoked. There is no history of EtOH abuse. DISPOSITION: The patient is a full code. Her daughter is her surrogate healthcare decision maker. REVIEW OF SYSTEMS: HEAD: Denies headache or head injury. Denies dizziness. CONSTITUTIONAL: No history of fever chills or rigors. Denies any generalized fatigue or weakness. She claims to be very active. EYES: No history of amblyo vianney., Or diplopia, and no amaurosis fugax. NOSE: No history of deviated nasal septum, no hayfever and no nosebleeds. THROAT: No history of odynophagia, or dysphagia, and no history of recurrent sore throats. MOUTH: No altered taste sensation no ulcers in the mouth no bleeding from the gums. SKIN: No history of pruritus no history of allergies discoloration of the skin, no skin cancer or eczema. NECK: No history of neck pain,, no swelling in the neck. No goiter. LUNGS: No history of asthma COPD. No recent symptoms of upper or lower respiratory tract infection. No history of pulmonary embolism or sleep apnea. No cough or sputum production, no wheezing. No acute hemoptysis. Although no pleuritic chest pain the patient did have left sharp left-sided pain which increases on deep breathing. HEART: Denies history of hypertension, no prior history of AZ or congestive heart failure or cardiac arrhythmia no history of leg edema no history of PND orthopnea. No history of syncope. Recent symptoms of jaw pain improved with more pain to severe surgery shortness of breath. EKG shows changes in the anterior leads, and also the patient's troponin is elevated consistent with non-ST elevation AZ. History of exertional heartburn since last 3 months. GI: She has a history of GERD symptoms. Recent EGD showed no significant pathology in the esophagus or stomach. No history of jaundice. No history of fatty food intolerance. Note that the patient's liver function tests are slightly abnormal. There is no history of GI bleed. No abdominal pain. No cirrhosis of the liver. No altered bowel movements. No abdominal pain. Endocrine: She has a history of diabetes mellitus, type 2 insulin-dependent, but no thyroid disease. No history of polydipsia polyuria no history of heat or cold intolerance. No history of hirsutism. No history of excessive sweating. RENAL: No history of chronic kidney disease no symptoms of UTI no history of hematuria pyuria or dysuria. Musculoskeletal: Denies arthritis or collagen vascular disease. Metabolic: No history of obesity. No history of gout. Although she has no prior history of hyperlipidemia, her lab results suggest dyslipidemia. CURRICULUM COACH: No history of TIA or CVA no history of headaches migraines or seizures, and no gait imbalance. PSYCHIATRIC: She has a history of anxiety, and depression. No suicidal ideation no homicidal ideation. VASCULAR: No history of calf or buttock claudication, and no history of DVT. Hematological: No history of bleeding diathesis or clotting disorders. No history of anemia. PHYSICAL EXAMINATION: The patient is mildly obese. In no acute distress. She is well-groomed. 05/07/18 11:55 Temperature 97.8 F Temperature Oral Source Pulse Rate 83 Respiratory 15 Rate Blood Pressure 165/78 H Blood Pressure 107 Mean BP Location Left Arm BP Position Supine O2 Sat by Pulse 98 Oximetry Oxygen Delivery Room Air Method HEAD: Atraumatic, normocephalic. EYES: Pupils equal round and reactive to light, extraocular movements intact, sclera anicteric, conjunctiva are normal. ENT: TMs normal, nares patent, oropharynx clear without exudates. Moist mucous membranes. NECK: Normal range of motion, supple without lymphadenopathy or JVD. Carotids are equal there is no bruits. There is no thyromegaly. There is no accessory muscles of respiration in use. Trachea central LUNGS: Breath sounds clear to auscultation bilaterally and equal. No wheezes rales or rhonchi. On palpation there is no chest wall tenderness. HEART: S1-S2 is heard. S1 is of normal intensity. There is no S3 gallop. There is no S4 gallop. There is systolic murmur left sternal border and apex without radiation. There is no rub.. ABDOMEN: Soft, nontender, normoactive bowel sounds. There is no hepatosplenic megaly no guarding, no rebound. No masses appreciated. EXTREMITIES: Normal range of motion, no pitting or edema. No clubbing or cyanosis. Femorals are well felt. There is no femoral bruits. Leg pulses are well felt. There is no DVT or cellulitis. There is no calf tenderness NEUROLOGICAL: Cranial nerves II through XII grossly intact. Normal speech, normal gait. The patient is awake alert oriented x3 with no focal deficits. PSYCH: Normal mood, normal affect. The patient judgment and insight are intact SKIN: Warm, Dry, normal turgor, no rashes or lesions noted. There is no petechia or ecchymosis. Home Meds Table Insulin Lispro [Humalog] 30 units SQ MEALS 03/25/11 Venlafaxine HCl [Venlafaxine HCl ER] 75 mg PO QAM 10/27/11 Buspirone HCl [Buspar 5 mg Tablet] 7.5 mg PO Q12 12/04/17 Turm/Ging/Cash/Yuc/Sanjiv/Brandi/Hor [Tumersaid Tablet] 1 each PO DAILY 04/28/18 Insulin Aspart Prot/Insuln Asp [Novolog Mix 70-30 Flexpen Syrn] 60 units SUBCUT QAM 05/07/18 05/06/18 11:24 Morphine Sulfate [Morphine 10 mg/ml Inj] 4 mg IV NOW ONE 05/06/18 12:08 Aspirin [Aspirin 81 mg Chewable Tablet] 162 mg PO NOW ONE 05/06/18 12:25 Lorazepam [Ativan Inj 2 mg/1 ml Vial] 1 mg IV NOW ONE 05/06/18 13:54 Nitroglycerin [Nitrol 2% Ointment 1Gm Packet] 1 gm TP NOW ONE 05/06/18 15:21 Nitroglycerin [Nitrostat 0.4 mg (1/150 Gr) Tabs 25/Bottle] 1 tab SL Q5MP PRN Ondansetron [Zofran Odt 4 mg Tablet] 4 mg PO Q6HP PRN 05/06/18 17:00 Lansoprazole [Prevacid 30 mg Odt Tablet] 30 mg PO BID@0600,1700 05/06/18 17:11 Ondansetron HCl/Pf [Zofran Inj/Pf 4 mg/2 ml Sdv] 4 mg .ROUTE .STK-MED ONE 05/06/18 20:07 Dextrose 50%-Water [Dextrose Inj 50% Syringe (25 gm/50 ml)] 12.5 gm IV PRN PRN Dextrose 50%-Water [Dextrose Inj 50% Syringe (25 gm/50 ml)] 25 gm IV PRN PRN Dextrose [Glutose 40% Gel 15 gm Tube] 15 gm PO PRN PRN Dextrose [Glutose 40% Gel 15 gm Tube] 30 gm PO PRN PRN Glucagon,Human Recombinant [Glucagen Inj 1 mg Vial] 1 mg IM PRN PRN 05/06/18 20:10 Acetaminophen [Tylenol 325 mg Tablet] 650 mg PO Q4HP PRN Hydralazine HCl [Apresoline Inj/Pf 20 mg/1 ml Sdv] 20 mg IV Q4HP PRN Labetalol HCl [Normodyne Inj 20 mg/4 ml Syringe] 20 mg IV Q2HP PRN Mag Hydrox/Al Hydrox/Simeth [Maalox Plus Susp 30 Udcup] 30 ml PO Q6HP PRN Magnesium Hydroxide [Milk of Magnesia 30 ml Udcup] 30 ml PO HSP PRN Morphine Sulfate [Morphine 10 mg/ml Inj] 2 mg IV Q2HP PRN Morphine Sulfate [Morphine 10 mg/ml Inj] 3 mg IV Q2HP PRN 05/06/18 20:12 Lorazepam [Ativan 1 mg Tablet] 1 mg PO Q4HP PRN 05/06/18 22:00 Insulin Lispro [Humalog Insulin 100 Unit/1 ml 3 ml Vial] 0 - 20 unit SUBCUT ACHS 05/06/18 23:59 Buspirone HCl [Buspar 10 mg Tablet] 7.5 mg PO NOW ONE 05/07/18 08:00 Hum Insulin NPH/Reg Insulin Hm [Insulin Inj 70-30 (100 Unit/1 ml) 3 ml Vial] 60 unit SUBCUT QAM Insulin Glargine,Hum.rec.anlog [Lantus Insulin 100 Unit/1 ml 10 ml] 60 unit SUBCUT QAM Venlafaxine HCl ER [Effexor Xr 75 mg Cap.sr] 75 mg PO QAM 05/07/18 10:00 Aspirin [Aspirin 81 mg Chewable Tablet] 81 mg PO DAILY Buspirone HCl [Buspar 10 mg Tablet] 7.5 mg PO Q12 Docusate Sodium [Colace 100 mg Capsule] 100 mg PO BID Insulin Lispro [Humalog Insulin 100 Unit/1 ml 3 ml Vial] 30 unit SUBCUT TID 05/07/18 12:30 Aspirin [Aspirin 325 mg Tablet] 325 mg PO NOW ONE Chest X-Ray 05/06/18 11:24 IMPRESSION: NO ACUTE FINDINGS. Chest/Abdomen CTA 05/07/18 09:26 IMPRESSION: 1. No pulmonary embolus or aortic disease appreciated. 2. Coronary calcification. 3. No acute or suspicious chest findings. Lungs clear allowing for chronic and therefore presumably benign right upper lobe subcentimeter nodule. Patient's initial EKG shows sinus rhythm. Nonspecific ST-T changes in anterolateral leads. Subsequent EKG shows T inversion in the anterior leads and lateral leads. Subsequent EKG shows some nonspecific ST-T changes in the anterolateral leads. Patient's echocardiogram is a poor quality study. Suspect anterior wall hypokinesis, and possibly apical lateral wall hypokinesis. But cannot be sure overall LV ejection fraction is normal. IMPRESSION/RECOMMENDATION: 1.Non-ST elevation AZ: Recommend treating the patient with the 1 mg/kg subcutaneously every 12 hours of Lovenox, add Lopressor 25 mg p.o. every 12 hours, continue statins and continue aspirin. Would strongly recommend that the patient have a cardiac catheterization. The patient states that since her family lives near [place], she would rather have a cardiac catheterization in [place]. Have discussed the case with the PCU cardiology, and arrangements are being being made to transfer the patient to [facility]. The patient is aware of the benefits and risks of the transfer. Risks, benefits and complications of cardiac catheterization were discussed at length. Make sure the patient cardiac cardiac catheterization teaching video. 2. Diabetes mellitus type 2 insulin-dependent: Continue insulin and monitor blood sugars. 3. GERD: Continue proton pump inhibitors. 4. Anxiety and depression: Continue antidepressants and anti-anxiolytic agents. Medications reviewed. New medications added. Management plan discussed with attending physician on the case. Discussed with the patient, and at the patient's request spoke to the patient's daughter on the phone. The daughter has been brought up-to-date on the patient's clinical condition, and that the patient is stable, and it is recommended the patient have a cardiac catheterization. In view of the troponin I continue to rise. Medical decision making is of high complexity. 60 minutes spent on this patient more than 50% of time spent in direct patient care.
--- NOTE | 2018-05-07 14:44 | PDOC TRANSFER SUMMARY ---
General Admission Date/PCP: 05/06/18 14:06 JOVAN GORMAN MD Admission Date: 05/06/18 Transfer Date: 05/07/18 Accepting Facility: [facility] Resuscitation Status: Full Code - Transfer Diagnosis (1) Chest pain Is this a current diagnosis for this admission?: Yes (2) GERD (gastroesophageal reflux disease) Is this a current diagnosis for this admission?: Yes (3) Anxiety Is this a current diagnosis for this admission?: Yes (4) Depression Is this a current diagnosis for this admission?: Yes - Transfer Medications Home Medications: RX: Insulin Lispro [Humalog] 30 units SQ MEALS 03/25/11 RX: Venlafaxine HCl [Venlafaxine HCl ER] 75 mg PO QAM 10/27/11 RX: Buspirone HCl [Buspar 5 mg Tablet] 7.5 mg PO Q12 12/04/17 Turm/Ging/Cash/Yuc/Sanjiv/Brandi/Hor [Tumersaid Tablet] 1 each PO DAILY 04/28/18 RX: Insulin Aspart Prot/Insuln Asp [Novolog Mix 70-30 Flexpen Syrn] 60 units SUBCUT QAM 05/07/18 Transfer Medications: Current Medications Acetaminophen (Tylenol 325 Mg Tablet) 650 mg PO Q4HP PRN PRN Reason: For headache, pain or fever Stop: 06/05/18 20:09 Al Hydrox/Mg Hydrox/Simethicone (Maalox Plus Susp 30 Udcup) 30 ml PO Q6HP PRN PRN Reason: HEARTBURN Stop: 06/05/18 20:09 Aspirin (Aspirin 81 Mg Chewable Tablet) 81 mg PO DAILY [facility] Stop: 06/06/18 09:59 Last Admin: 05/07/18 09:20 Dose: 81 mg Documented by: Buspirone HCl (Buspar 10 Mg Tablet) 7.5 mg PO Q12 JAYLEN Stop: 06/06/18 09:59 Last Admin: 05/07/18 09:20 Dose: 7.5 mg Documented by: Dextrose (Dextrose Inj 50% Syringe (25 Gm/50 Ml)) 12.5 gm IV PRN PRN; Protocol PRN Reason: FOR BG 50-69 IN ALERT PATIENT Stop: 06/05/18 20:06 Dextrose (Dextrose Inj 50% Syringe (25 Gm/50 Ml)) 25 gm IV PRN PRN; Protocol PRN Reason: PER PROTOCOL Stop: 06/05/18 20:06 Docusate Sodium (Colace 100 Mg Capsule) 100 mg PO BID [facility] Stop: 06/06/18 09:59 Last Admin: 05/07/18 09:20 Dose: 100 mg Documented by: Enoxaparin Sodium (Lovenox Inj 100 Mg/1 Ml Disp.Syrin) 85 mg SUBCUT Q12 [facility] Stop: 06/06/18 12:29 Last Admin: 05/07/18 12:17 Dose: 85 mg Documented by: Glucagon (Glucagen Inj 1 Mg Vial) 1 mg IM PRN PRN; Protocol PRN Reason: Evaluate for BG < 70 Stop: 06/05/18 20:06 Glucose (Glutose 40% Gel 15 Gm Tube) 15 gm PO PRN PRN; Protocol PRN Reason: FOR BG 50-69 IN ALERT PATIENT Stop: 06/05/18 20:06 Glucose (Glutose 40% Gel 15 Gm Tube) 30 gm PO PRN PRN; Protocol PRN Reason: FOR BG < 50 IN ALERT PATIENT Stop: 06/05/18 20:06 Hydralazine HCl (Apresoline Inj/Pf 20 Mg/1 Ml Sdv) 20 mg IV Q4HP PRN PRN Reason: Give For Sbp > 160 / Dbp > 100 Stop: 06/05/18 20:09 Insulin Glargine (Lantus Insulin 100 Unit/1 Ml 10 Ml) 60 unit SUBCUT QAM [facility] Stop: 06/06/18 07:59 Last Admin: 05/07/18 07:41 Dose: 60 unit Documented by: Insulin Human Isoph/Insulin Regular (Insulin Inj 70-30 (100 Unit/1 Ml) 3 Ml Vial) 60 unit SUBCUT QAM [facility] Stop: 06/06/18 07:59 Last Admin: 05/07/18 07:42 Dose: 60 unit Documented by: Insulin Human Lispro (Humalog Insulin 100 Unit/1 Ml 3 Ml Vial) 0 - 20 unit SUBCUT [facility]; Protocol Stop: 06/05/18 21:59 Last Admin: 05/07/18 12:05 Dose: 8 unit Documented by: Insulin Human Lispro (Humalog Insulin 100 Unit/1 Ml 3 Ml Vial) 30 unit SUBCUT TID [facility] Stop: 06/06/18 09:59 Last Admin: 05/07/18 09:22 Dose: 30 unit Documented by: Labetalol HCl (Normodyne Inj 20 Mg/4 Ml Syringe) 20 mg IV Q2HP PRN PRN Reason: Give For Sbp >160 or Dbp >100 Stop: 06/05/18 20:09 Last Admin: 05/06/18 22:28 Dose: 20 mg Documented by: Lansoprazole (Prevacid 30 Mg Odt Tablet) 30 mg PO BID@0600,1700 [facility] Stop: 06/05/18 16:59 Last Admin: 05/07/18 05:29 Dose: 30 mg Documented by: Lorazepam (Ativan 1 Mg Tablet) 1 mg PO Q4HP PRN PRN Reason: ANXIETY/AGITATION Stop: 05/13/18 20:11 Last Admin: 05/07/18 06:07 Dose: 1 mg Documented by: Magnesium Hydroxide (Milk Of Magnesia 30 Ml Udcup) 30 ml PO HSP PRN PRN Reason: FOR CONSTIPATION Stop: 06/05/18 20:09 Metoprolol Tartrate (Lopressor 25 Mg Tablet) 25 mg PO Q12 [facility] Stop: 06/06/18 12:29 Last Admin: 05/07/18 12:16 Dose: 25 mg Documented by: Morphine Sulfate (Morphine 10 Mg/Ml Inj) 2 mg IV Q2HP PRN PRN Reason: FOR PAIN SCALE 1-2 Stop: 05/13/18 20:09 Morphine Sulfate (Morphine 10 Mg/Ml Inj) 3 mg IV Q2HP PRN PRN Reason: FOR PAIN SCALE 3-4 Stop: 05/13/18 20:09 Morphine Sulfate (Morphine 10 Mg/Ml Inj) 4 mg IV Q2HP PRN PRN Reason: PAIN SCALE OF 5 Stop: 05/13/18 20:09 Nitroglycerin (Nitrostat 0.4 Mg (1/150 Gr) Tabs 25/Bottle) 1 tab SL Q5MP PRN PRN Reason: FOR CHEST PAIN Stop: 06/05/18 15:20 Last Admin: 05/06/18 18:50 Dose: 1 tab Documented by: Ondansetron HCl (Zofran Odt 4 Mg Tablet) 4 mg PO Q6HP PRN PRN Reason: FOR NAUSEA/VOMITING Stop: 06/05/18 15:20 Venlafaxine HCl (Effexor Xr 75 Mg Cap.Sr) 75 mg PO QAM [facility] Stop: 06/06/18 07:59 Last Admin: 05/07/18 07:43 Dose: 75 mg Documented by: - Allergies Allergies/Adverse Reactions: Sulfa (Sulfonamide Antibiotics) Allergy (Verified 05/06/18 10:42) Hiv celecoxib [From Celebrex] Adverse Reaction (Intermediate, Verified 05/06/18 10:42) [facility] Hospital Course Hospital Course: BAUTISTA ROGERS is a 68 year old female who presented to [facility] for chest pain. She has a PMH of GERD, CT, HLD, anxiety and depression. The patient states she began experiencing chest heaviness this morning that radiated to her shoulder and the 'roof of her mouth.' She took 162mg ASA and came to the hospital. The patient endorses a significant amount of stress because this month lema the 6 year anniversary of her 's passing. Upon arrival to the ED, the patient's EKG shows NSR with LVH. No ischemia or infarction. All lab work is relatively benign, including CBC, chemistry and cardiac enzymes. CXR normal, no cardiopulmonary pathology. The patient was given another 162mg ASA and 1 sublingual Nitroglycerin tablet. She was also given 1mg Ativan IV for self-reported anxiety. Following these treatments, the patient states her chest pain resolved. The patient was admitted to the hospitalist service for chest pain observation. Overnight, her Troponin increased .06->0.4->2.0->3.0. The patient continued to deny chest pain or dyspnea. New T wave inversion in the anterior & lateral leads on a routine follow up EKG. [employer]er was notified. The patient was started on full dose lovenox and lopressor 25mg BID. This patient will likely require cardiac catheterization and therefore requires transfer to a tertiary facility. Dr. Titus has graciously accepted this patient. Physical Exam Vital Signs: Temp Pulse Resp BP Pulse Ox 97.8 F 83 15 165/78 H 98 05/07/18 11:55 05/07/18 11:55 05/07/18 11:55 05/07/18 11:55 05/07/18 11:55 Intake & Output 05/06/18 05/07/18 05/08/18 06:59 06:59 06:59 Intake Total 200 Balance 200 Weight 86.5 kg Results Laboratory Results: 05/07/18 03:51 05/07/18 03:51 05/07/18 05/07/18 03:51 03:51 WBC 8.1 RBC 4.86 Hgb 14.8 D Hct 41.3 MCV 85 MCH 30.4 MCHC 35.8 RDW 13.5 Plt Count 274 Sodium 139.2 Potassium 4.0 Chloride 100 Carbon Dioxide 29 Anion Gap 10 BUN 20 Creatinine 1.15 Est GFR ( Amer) 57 L Est GFR (Non-Af Amer) 47 L Glucose 262 H Calcium 10.0 Phosphorus 4.3 Triglycerides 231 H Cholesterol 209.42 H LDL Cholesterol Direct 144 H VLDL Cholesterol 46.2 H HDL Cholesterol 39 L 05/06/18 05/06/18 05/06/18 11:45 16:05 22:00 Creatine Kinase CK-MB (CK-2) 1.35 6.01 H Troponin I < 0.012 0.063 0.490 05/07/18 05/07/18 05/07/18 03:51 09:57 09:57 Creatine Kinase 178 H CK-MB (CK-2) 11.50 H 13.40 H Troponin I 2.010 3.370 Impressions: Chest X-Ray 05/06/18 11:24 IMPRESSION: NO ACUTE FINDINGS. Chest/Abdomen CTA 05/07/18 09:26 IMPRESSION: 1. No pulmonary embolus or aortic disease appreciated. 2. Coronary calcification. 3. No acute or suspicious chest findings. Lungs clear allowing for chronic and therefore presumably benign right upper lobe subcentimeter nodule. Status: Imported from PACS Plan Time Spent: Greater than 30 Minutes
--- NOTE | 2018-05-07 23:35 | XCELERA REPORT ---
[address] [address] Transthoracic Echocardiogram Report Name: BAUTISTA ROGERS Age: 68 yrs Gender: Female : 1950 Patient Status: Inpatient Patient Location: [address] [place] [address] Study Date: 05/07/2018 12:59 PM Height: 63 in Weight: 190 lb BSA: 1.9 m2 Procedure: A two-dimensional transthoracic echocardiogram with color flow and Doppler was performed. Study Quality: Poor. The study was technically difficult with many images being suboptimal in quality. sUBOPTIMAL ENDOCARDIAL VISUALISATION. Reason For Study: NSTEMI, MURMUR History: NSTEMI, MURMUR. Ordering Physician: RYNE NAILS Performed By: Lucio Marrero Interpretation Summary The left ventricle is normal in size. There is normal left ventricular wall thickness. LV EF is 65% The left ventricular ejection fraction is within normal limits. Doppler measurements suggest impaired left ventricular relaxation, which is associated with grade I/IV or mild diastolic dysfunction sUSPECT ANTERIOR AND APICAL LATERAL WALL HYPOKINESIS,BUT CANNOT BE SURE. Right atrium not well visualized secondary to technical limitations The left atrial size is normal. There is no evidence of mitral valve prolapse. There is no vegetation seen on the mitral valve. There is no mitral valve stenosis. Probably no MR. There is no aortic valve stenosis No aortic regurgitation is present. There is no tricuspid stenosis. Probably no TR.Unable to calculate RVSP due tolack of TR jet. There is no pericardial effusion. MMode/2D Measurements & Calculations RVDd: 2.1 cm LVIDd: 4.1 cm FS: 40.1 % Ao root diam: 2.8 cm IVSd: 1.1 cm LVIDs: 2.5 cm EDV(Teich): 75.4 ml Ao root area: 6.2 cm2 LVPWd: 0.87 cm ESV(Teich): 21.7 ml LA dimension: 2.9 cm EF(Teich): 71.2 % Doppler Measurements & Calculations MV E max karime: MV P1/2t max karime: Ao V2 max: LV V1 max P.6 cm/sec 71.4 cm/sec 70.6 cm/sec 1.2 mmHg MV A max karime: MV P1/2t: 97.0 msec Ao max PG: LV V1 max: 86.9 cm/sec MVA(P1/2t): 2.3 cm2 2.0 mmHg 53.8 cm/sec MV E/A: 0.76 MV dec slope: 215.5 cm/sec2 MV dec time: 0.20 sec PA V2 max: MV P1/2t-pr_phl: 96.0 cm/sec 97.0 msec PA max P.7 mmHg Left Ventricle The left ventricle is normal in size. There is normal left ventricular wall thickness. LV EF is 65%. The left ventricular ejection fraction is within normal limits. Doppler measurements suggest impaired left ventricular relaxation, which is associated with grade I/IV or mild diastolic dysfunction. sUSPECT ANTERIOR AND APICAL LATERAL WALL HYPOKINESIS,BUT CANNOT BE SURE. Right Ventricle The right ventricle is not well visualized secondary to technical limitations. Atria Right atrium not well visualized secondary to technical limitations. The left atrial size is normal. Mitral Valve There is no evidence of mitral valve prolapse. There is no vegetation seen on the mitral valve. There is no mitral valve stenosis. Probably no MR. Aortic Valve There is no aortic valve stenosis. No aortic regurgitation is present. Tricuspid Valve There is no tricuspid stenosis. Probably no TR.Unable to calculate RVSP due tolack of TR jet. Pulmonic Valve The pulmonic valve is not well visualized. Great Vessels The aortic root is normal size. Effusions There is no pericardial effusion. : RYNE NAILS > Raeann Davenport
--- NOTE | 2018-05-08 00:04 | EKG REPORT ---
SEVERITY:- ABNORMAL ECG - SINUS OR ECTOPIC ATRIAL RHYTHM LEFT ANTERIOR FASCICULAR BLOCK PROBABLE LVH WITH SECONDARY REPOL ABNRM : Confirmed by: Gin Davis 08-May-2018 00:04:14
--- NOTE | 2018-05-08 00:04 | EKG REPORT ---
SEVERITY:- ABNORMAL ECG - SINUS RHYTHM LEFT ANTERIOR FASCICULAR BLOCK PROBABLE LVH WITH SECONDARY REPOL ABNRM : Confirmed by: Gin Davis 08-May-2018 00:03:52
== END 2018-05-07 16:51 | disposition short-term general hospital (02) ==
LOC: ER 10:42 → EH 14:06 → 4N 19:44
PROVIDERS: ADMIT Internal Medicine; ATTEND Internal Medicine
DX: R07.9 Chest pain, unspecified (principal); K21.9 Gastro-esophageal reflux disease without esophagitis; F41.9 Anxiety disorder, unspecified; F32.9 Major depressive disorder, single episode, unspecified; R68.84 Jaw pain; I25.2 Old myocardial infarction; R94.31 Abnormal electrocardiogram [ECG] [EKG]; R01.1 Cardiac murmur, unspecified; E11.9 Type 2 diabetes mellitus without complications; M13.89 Other specified arthritis, multiple sites; K13.79 Other lesions of oral mucosa; Z79.4 Long term (current) use of insulin; Z63.4 Disappearance and death of family member; Z87.19 Personal history of other diseases of the digestive system; Z90.49 Acquired absence of other specified parts of digestive tract
CPT/HCPCS: 93005 ×2; 99285; 96374; 96375; 36415 ×2; 82553 ×2; 82962 ×2; 82550; 84100; 85025; 85027; 80048; 80053; 84484 ×2; 80061; 93306; 71045; 71275; 93010 ×2; A9270 ×16; J3490; J2270; J2060; J1650 ×3; J1815

== ENCOUNTER → 2018-09-07 | Outpatient (CLI) | payer MEDICARE, MEDICAID ==
--- NOTE | 2018-09-07 12:42 | RADIOLOGY REPORT (SQ) ---
EXAM DESCRIPTION: CAROTID DOPPLER COMPLETED DATE/TIME: 09/07/2018 12:08 pm REASON FOR STUDY: DIZZINESS R42 DIZZINESS AND GIDDINESS COMPARISON: None. TECHNIQUE: Grayscale ultrasound, Doppler velocity and spectra, and color Doppler images acquired of the extra-cranial carotid and vertebral arteries. Images stored on PACS. LIMITATIONS: None. FINDINGS: RIGHT CAROTID CCA Velocities: Within normal limits. Right common carotid artery peak systolic velocity 0.85 m/sec ICA Velocities Peak systolic 1.1 m/s. End diastolic 0.35 m/s. Proximal ICA/CCA peak systolic ratio normal. Spectra normal. Minimal calcific plaque. LEFT CAROTID CCA Velocities: Within normal limits. Left common carotid artery peak systolic velocity 1.1 m/sec ICA Velocities Peak systolic 0.77 m/s. End diastolic 0.24 M m/s. Proximal ICA/CCA peak systolic ratio normal. Spectra normal. Minimal calcific plaque. VERTEBRAL ARTERIES: Antegrade flow. Normal waveforms. SUBCLAVIAN ARTERIES: Not evaluated. OTHER: No other significant finding. IMPRESSION: NO HEMODYNAMICALLY SIGNIFICANT STENOSIS. COMMENT: Quality ID #[id number]: Velocity criteria are extrapolated from the diameter data as defined by t he Society of Radiologists in Ultrasound Consensus Conference. Radiology 2003: 229; 340-346. TECHNICAL DOCUMENTATION: JOB ID: [id number] [employer]- All Rights Reserved Reading location - IP/workstation name: [email or web address]
== END ==
LOC: SP 08:22
PROVIDERS: ATTEND Nurse Practitioner Primary Care
DX: R42 Dizziness and giddiness (principal)
CPT/HCPCS: 93880

== ENCOUNTER 2018-09-12 13:33 | Emergency (ER) | payer MEDICARE, MEDICAID ==
[2018-09-12 14:23] LABS: ABSOLUTE BASOPHILS # (AUTO) 0.1 10^3/uL (0.0-0.2); ABSOLUTE EOSINOPHILS # (AUTO) 0.6 10^3/uL (0.0-0.6); ABSOLUTE LYMPHOCYTES (AUTO) 2.7 10^3/uL (0.5-4.7); ABSOLUTE MONOCYTES (AUTO) 0.7 10^3/uL (0.1-1.4); ABSOLUTE NEUT (AUTO) 5.1 10^3/uL (1.7-8.2); BASOPHILS % (AUTO) 0.6 % (0-2); EOSINOPHILS % (AUTO) 6.7 % (0-6); HEMATOCRIT 41.1 % (36.0-47.0); HEMOGLOBIN 14.5 g/dL (12.0-15.5); LYMPHOCYTES % (AUTO) 29.6 % (13-45); MEAN CORPUSCULAR HEMOGLOBIN 30.2 pg (27.0-33.4); MEAN CORPUSCULAR HGB CONC 35.2 g/dL (32.0-36.0); MEAN CORPUSCULAR VOLUME 86 fl (80-97); MONOCYTES % (AUTO) 7.8 % (3-13); PLATELET COUNT 343 10^3/uL (150-450); RED CELL DISTRIBUTION WIDTH 13.8 % (11.5-14.0); SEGMENTED NEUTROPHILS % (AUTO) 55.3 % (42-78); TOTAL CELLS COUNTED % (AUTO) 100 %; WHITE BLOOD COUNT 9.3 10^3/uL (4.0-10.5)
--- NOTE | 2018-09-12 14:35 | RADIOLOGY REPORT (SQ) ---
EXAM DESCRIPTION: CHEST SINGLE VIEW COMPLETED DATE/TIME: 09/12/2018 2:19 pm REASON FOR STUDY: chest pain COMPARISON: 05/06/2018 EXAM PARAMETERS: NUMBER OF VIEWS: One view. TECHNIQUE: Single frontal radiographic view of the chest acquired. RADIATION DOSE: NA LIMITATIONS: None. FINDINGS: LUNGS AND PLEURA: No opacities, masses or pneumothorax. No pleural effusion. MEDIASTINUM AND HILAR STRUCTURES: No masses. Contour normal. HEART AND VASCULAR STRUCTURES: Heart normal in size. Normal vasculature. Coronary stents. BONES: No acute findings. HARDWARE: None in the chest. OTHER: No other significant finding. IMPRESSION: No acute abnormality of the lungs in AP projection. TECHNICAL DOCUMENTATION: JOB ID: [id number] [employer]- All Rights Reserved Reading location - IP/workstation name: [email or web address]
[2018-09-12 14:41] LABS: ALANINE AMINOTRANSFERASE 12 U/L (9-52); ALBUMIN 4.4 g/dL (3.5-5.0); ALKALINE PHOSPHATASE 69 U/L (38-126); ANION GAP 10 (5-19); ASPARTATE AMINO TRANSFERASE 17 U/L (14-36); BILIRUBIN,DIRECT 0.3 mg/dL (0.0-0.4); BILIRUBIN,TOTAL 0.6 mg/dL (0.2-1.3); BLOOD UREA NITROGEN 33 mg/dL (7-20); CALCIUM 10.7 mg/dL (8.4-10.2); CARBON DIOXIDE 26 mmol/L (22-30); CHLORIDE 104 mmol/L (98-107); GLUCOSE 84 mg/dL (75-110); SODIUM 140.1 mmol/L (137-145); TOTAL PROTEIN 7.5 g/dL (6.3-8.2)
--- NOTE | 2018-09-12 15:09 | ER Document Report ---
ED Cardiac - General Chief Complaint: Chest Pain Stated Complaint: CHEST PAIN Time Seen by Provider: 09/12/18 14:06 Primary Care Provider: SANDRA WADE MD [Primary Care Provider] - Follow up as needed TRAVEL OUTSIDE OF THE [place] IN LAST 30 DAYS: No - HPI Notes: Patient is a 68-year-old female that presents to the emergency department for chief complaint of back pain. Patient states this morning while the last she had a sudden onset of a pain in between her shoulder blades. She states it is a throbbing sensation. She denies any aggravating or relieving factors to the pain. She states it is been constant since onset. The pain does not radiate into her arms, chest or down into her low back. She denies any injury or trauma. Patient states that she had coronary stenting x4 done in [place] in April. She did take 1 of her sublingual nitro as well as her aspirin and Plavix this morning without relief of her symptoms. She denies taking any pain medication. Patient has not had any chest pain. While sitting in the emergency room she states she had an a max in the left side of her jaw that lasted for a few minutes without radiation and that has since resolved. She denies any known aortic disease. Past Medical History: CAD, hypertension, hyperlipidemia, diabetes Past Surgical History: Bilateral total knee replacements Social History: Denies drugs alcohol and tobacco, not sexually active Family History: Reviewed and noncontributory for presenting illness Allergies: Reviewed, see documented allergy list. REVIEW OF SYSTEMS: CONSTITUTIONAL : No fever No chills No diaphoresis No recent illness EENT: Jaw pain No vision changes No congestion No sore throat CARDIOVASCULAR: No chest pain No palpitations RESPIRATORY: No shortness of breath No cough No difficulty breathing GASTROINTESTINAL: No abdominal pain No nausea No vomiting No diarrhea GENITOURINARY: No dysuria No hematuria No difficulty urinating MUSCULOSKELETAL: back pain No leg pain No arm pain SKIN: No rashes No lesions LYMPHATIC: No swollen, enlarged glands. NEUROLOGICAL: No lightheadedness No headache No weakness No paresthesias PSYCHIATRIC: No anxiety No depression PHYSICAL EXAMINATION: Vital signs reviewed, nursing noted reviewed. GENERAL: Well-appearing, well-nourished and in no acute distress. HEAD: Atraumatic, normocephalic. EYES: Eyes appear normal, extraocular movements intact, sclera anicteric, conjun ctiva are normal. ENT: nares patent, oropharynx clear without exudates. Moist mucous membranes. NECK: Normal range of motion, supple without lymphadenopathy LUNGS: Breath sounds clear to auscultation bilaterally and equal. No wheezes rales or rhonchi. HEART: Regular rate and rhythm without murmurs, +2/4 bilateral radial and DP pulses ABDOMEN: Soft, nontender, normoactive bowel sounds. No rebound, guarding, or rigidity. No masses appreciated. Back: No midline thoracic or lumbar tenderness. No paraspinal muscle tenderness in the thoracic or lumbar region. Normal range of motion of the lumbar spine. No CVA tenderness bilaterally. No overlying erythema or rashes. EXTREMITIES: Nontender, good range of motion, no pitting or edema. NEUROLOGICAL: No focal neurological deficits. Moves all extremities spontaneously Motor and sensory grossly intact on exam. PSYCH: Anxious mood, normal affect. SKIN: Warm, Dry, normal turgor, no rashes or lesions noted on exposed skin - Related Data Allergies/Adverse Reactions: Sulfa (Sulfonamide Antibiotics) Allergy (Verified 09/12/18 13:36) Hives celecoxib [From Celebrex] Adverse Reaction (Intermediate, Verified 09/12/18 13:36) Hives Past Medical History - Social History Smoking Status: Never Smoker Chew tobacco use (# tins/day): No Frequency of alcohol use: None Drug Abuse: None Family History: Reviewed & Not Pertinent Patient has suicidal ideation: No Patient has homicidal ideation: No - Past Medical History Cardiac Medical History: Reports: Hx Hypercholesterolemia Denies: Hx Coronary Artery Disease, Hx Heart Attack, Hx Hypertension Pulmonary Medical History: Denies: Hx Asthma, Hx Bronchitis, Hx COPD, Hx Pneumonia Neurological Medical History: Denies: Hx Cerebrovascular Accident, Hx Seizures Endocrine Medical History: Reports: 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 Nursing notes reviewed. Patient has not had any chest pain but does have multiple risk factors including recent coronary stenting. Patient had a short episode of pain in her left jaw while in the emergency room that resolved on its own. Her back pain has improved with Tylenol. CT scan was obtained to evaluate for aortic dissection given her acute onset of pain between her shoulder blades. CT scan shows no aortic aneurysm or dissection. Patient's initial troponin and repeat troponin are negative. Her work-up is relatively unremarkable. At this point she is feeling much better and states her pain has significantly improved to the point of being almost gone. She has no focal neurologic deficits to suggest epidural abscess or acute spinal cord compression. Patient will be discharged home in stable condition. She will follow closely with her primary care doctor. She will return for new or worse sindhu symptoms. She is in agreement with this plan of care. Laboratory 09/12/18 09/12/18 09/12/18 14:10 14:10 14:10 WBC 9.3 RBC 4.80 Hgb 14.5 Hct 41.1 MCV 86 MCH 30.2 MCHC 35.2 RDW 13.8 Plt Count 343 Seg Neutrophils % 55.3 Lymphocytes % 29.6 Monocytes % 7.8 Eosinophils % 6.7 H Basophils % 0.6 Absolute Neutrophils 5.1 Absolute Lymphocytes 2.7 Absolute Monocytes 0.7 Absolute Eosinophils 0.6 Absolute Basophils 0.1 Sodium 140.1 Potassium 4.0 Chloride 104 Carbon Dioxide 26 Anion Gap 10 BUN 33 H Creatinine 1.33 H Est GFR ( Amer) 48 L Est GFR (Non-Af Amer) 40 L Glucose 84 POC Glucose Calcium 10.7 H Total Bilirubin 0.6 Direct Bilirubin 0.3 Neonat Total Bilirubin Not Reportable Neonat Direct Bilirubin Not Reportable Neonat Indirect Bili Not Reportable AST 17 ALT 12 Alkaline Phosphatase 69 Troponin I < 0.012 Total Protein 7.5 Albumin 4.4 09/12/18 09/12/18 14:31 17:08 WBC RBC Hgb Hct MCV MCH MCHC RDW Plt Count Seg Neutrophils % Lymphocytes % Monocytes % Eosinophils % Basophils % Absolute Neutrophils Absolute Lymphocytes Absolute Monocytes Absolute Eosinophils Absolute Basophils Sodium Potassium Chloride Carbon Dioxide Anion Gap BUN Creatinine Est GFR ( Amer) Est GFR (Non-Af Amer) Glucose POC Glucose 74 Calcium Total Bilirubin Direct Bilirubin Neonat Total Bilirubin Neonat Direct Bilirubin Neonat Indirect Bili AST ALT Alkaline Phosphatase Troponin I < 0.012 Total Protein Albumin Chest X-Ray 09/12/18 14:06 IMPRESSION: No acute abnormality of the lungs in AP projection. Abdomen/Pelvis CTA 09/12/18 15:04 IMPRESSION: No evidence of dissection or aneurysm. No acute findings. Chest/Abdomen CTA 09/12/18 15:04 IMPRESSION: No acute findings in the chest. - Laboratory Result Diagrams: 09/12/18 14:10 09/12/18 14:10 Laboratory results interpreted by me: 09/12/18 09/12/18 14:10 14:10 Eosinophils % 6.7 H BUN 33 H Creatinine 1.33 H Est GFR ( Amer) 48 L Est GFR (Non-Af Amer) 40 L Calcium 10.7 H - EKG Interpretation by Me Additional EKG results interpreted by me: 09/12/18 15:09 Interpreted by myself 1339: Normal sinus rhythm, rate 56, left axis, LAFB, no STEMI, diffuse T wave flattening, no significant change from 05/07/2018 Discharge - Discharge Clinical Impression: Jaw pain Back pain Qualifiers: Back pain location: thoracic back pain Chronicity: acute Back pain laterality: midline Qualified Code(s): M54.6 - Pain in thoracic spine Condition: Stable Disposition: HOME, SELF-CARE Additional Instructions: Please return to the emergency department if you have any worsening, or concern of your symptoms. Please return to the emergency department if you develop chest pain, difficulty breathing, severe abdominal pain, or ongoing vomiting. Please follow-up with your primary care physician in 2-3 days and any other recommended physicians. If prescribed, take all medications as directed. If you have any questions or concerns do not hesitate to return the emergency department for evaluation. Referrals: SANDRA WADE MD [Primary Care Provider] - Follow up in 3-5 days
--- NOTE | 2018-09-12 16:28 | RADIOLOGY REPORT (SQ) ---
EXAM DESCRIPTION: CTA CHEST COMPLETED DATE/TIME: 09/12/2018 4:19 pm REASON FOR STUDY: dissection COMPARISON: 05/07/2018 TECHNIQUE: CT scan of the chest performed using helical scanning technique with dynamic intravenous contrast injection. Images reviewed with lung, soft tissue and bone windows. Reconstructed coronal and sagittal MPR images reviewed. Additional 3 dimensional post-processing performed to develop Maximal Intensity Projection images (IN P). All images stored on PACS. All CT scanners at this facility use dose modulation, iterative reconstruction, and/or weight based d osing when appropriate to reduce radiation dose to as low as reasonably achievable (ALARA). [facility]: Dose Right [facility]: CareDose [facility]: Dose Right [facility]: Teradose 4D [facility]: Solidarium CONTRAST TYPE AND DOSE: contrast/concentration: Isovue 350.00 mg/ml; Total Contrast Delivered: 63.0 ml; Total Saline Delivered: 70.0 ml RENAL FUNCTION: BUN 33 creatinine 1.3 RADIATION DOSE: CT Rad equipment meets quality standard of care and radiation dose reduction techniq ues were employed. CTDIvol: NaN - NaN mGy. DLP: 0 mGy-cm. . LIMITATIONS: None. FINDINGS: LUNGS AND PLEURA: No masses, infiltrates, or pneumothorax. No pleural effusions or pleura l calcifications. AORTA AND GREAT VESSELS: No aneurysm. No dissection. HEART: No pericardial effusion. PULMONARY ARTERIES: No emboli visualized in the main pulmonary arteries or the segmental branches. HILAR AND MEDIASTINAL STRUCTURES: No identified masses or abnormal nodes. HARDWARE: None in the chest. UPPER ABDOMEN: See separate report of the CT of the abdomen. THYROID AND OTHER SOFT TISSUES: Stable cystic thyroid nodule. BONES: No acute or significant finding. 3D MIPS: Confirm above findings. OTHER: No other significant finding. IMPRESSION: No acute findings in the chest. COMMENT: Quality ID # 436: Final reports with documentation of one or more dose reduction techniques (e.g., Automated exposure control, adjustment of the mA and/or kV according to patient size, use of iterative reconstruction technique) TECHNICAL DOCUMENTATION: JOB ID: [id number] [employer]- All Rights Reserved Reading location - IP/workstation name: [email or web address]
--- NOTE | 2018-09-12 16:31 | RADIOLOGY REPORT (SQ) ---
EXAM DESCRIPTION: CTA ABDOMEN/PELVIS W WO COMPLETED DATE/TIME: 09/12/2018 4:19 pm REASON FOR STUDY: dissection COMPARISON: 12/04/2017 TECHNIQUE: CT scan of the abdomen and pelvis performed with intravenous contrast using helical scann ing technique with dynamic intravenous contrast injection. Images reviewed with lung, soft tissue, an d bone windows. Reconstructed coronal and sagittal MPR images reviewed. All images stored on PACS. Advanced 3D imaging as volume rendering, MIPS, SSD performed? yes All CT scanners at this facility use dose modulation, iterative reconstruction, and/or weight based d osing when appropriate to reduce radiation dose to as low as reasonably achievable (ALARA). [facility]: Dose Right [facility]: CareDose [facility]: Dose Right [facility]: Teradose 4D [facility]: XimoXi CONTRAST TYPE AND DOSE: See separate report of the same date. RENAL FUNCTION: See separate report of the same date. LIMITATIONS: None. FINDINGS: AORTA AND VESSELS: No aneurysm or dissection. No significant stenosis. LUNG BASES: See separate report. LIVER: Normal size. No masses or dilated ducts. SPLEEN: Normal size. No focal lesions. PANCREAS: No masses. No significant calcifications. No adjacent inflammation or peripancreatic fluid collections. Pancreatic duct not dilated. GALLBLADDER: Surgically absent. ADRENAL GLANDS: No significant masses or asymmetry. RIGHT KIDNEY AND URETER: No mass, calculi or urinary tract obstruction. LEFT KIDNEY AND URETER: No mass, calculi or urinary tract obstruction. RETROPERITONEUM: No retroperitoneal adenopathy, hemorrhage or masses. BOWEL AND PERITONEAL CAVITY: No masses or inflammatory changes. No free fluid or peritoneal masses. APPENDIX: Surgically absent. ABDOMINAL WALL: No masses. No hernias. BONY STRUCTURES: No significant or acute findings. 3-D IMAGING: Confirms the above findings. OTHER: No other significant finding. IMPRESSION: No evidence of dissection or aneurysm. No acute findings. TECHNICAL DOCUMENTATION: JOB ID: [id number] Quality ID # [id number]: Final reports with documentation of one or more dose reduction techniques (e.g., Au tomated exposure control, adjustment of the mA and/or kV according to patient size, use of iterative reconstruction technique) 2010 [employer]- All Rights Reserved Reading location - IP/workstation name: [email or web address]
[2018-09-12] MEDS ORDERED: NORMAL SALINE 1000 ML 1,000 ML IV ONE (16:35)
[2018-09-12] MEDS ORDERED: ACETAMINOPHEN 325 MG TABLET PO ONE (16:38)
--- NOTE | 2018-09-13 07:54 | EKG REPORT ---
SEVERITY:- ABNORMAL ECG - SINUS RHYTHM LEFT ANTERIOR FASCICULAR BLOCK PROBABLE LVH WITH SECONDARY REPOL ABNRM : Confirmed by: Raeann Davenport MD 13-Sep-2018 07:54:25
== END 2018-09-12 20:30 | disposition home or self-care (01) ==
LOC: ER 13:33
DX: R68.84 Jaw pain (principal); M54.6 Pain in thoracic spine; R07.9 Chest pain, unspecified; E78.00 Pure hypercholesterolemia, unspecified; E11.9 Type 2 diabetes mellitus without complications; Z79.01 Long term (current) use of anticoagulants; Z79.82 Long term (current) use of aspirin; Z79.84 Long term (current) use of oral hypoglycemic drugs; Z79.4 Long term (current) use of insulin; Z90.49 Acquired absence of other specified parts of digestive tract; Z90.710 Acquired absence of both cervix and uterus; Z96.643 Presence of artificial hip joint, bilateral; Z96.662 Presence of left artificial ankle joint; Z96.661 Presence of right artificial ankle joint; Z88.2 Allergy status to sulfonamides
CPT/HCPCS: 93005; 99285; 36415; 82962; 85025; 80053; 84484; 71045; 71275; 74174; 93010; A9270; J7030

== ENCOUNTER → 2018-11-07 | Outpatient (CLI) | payer MEDICARE ==
--- NOTE | 2018-11-07 11:45 | RADIOLOGY REPORT (SQ) ---
EXAM DESCRIPTION: U/S RETROPERITON (RENAL/AORTA) COMPLETED DATE/TIME: 11/07/2018 11:31 am REASON FOR STUDY: N18.3 CHRONIC KIDNEY DISEASE, STAGE 3 (MODERATE) N18.3 CHRONIC KIDNEY DISEASE, ST AGE 3 (MODERATE) COMPARISON: None. TECHNIQUE: Dynamic and static grayscale images acquired of the kidneys and bladder and recorded on P ACS. Additional selected color Doppler and spectral images recorded. LIMITATIONS: None. FINDINGS: RIGHT KIDNEY: Normal size. Normal echogenicity. No solid or suspicious masses. No hydronep hrosis. No calcifications. LEFT KIDNEY: Normal size. Normal echogenicity. No solid or suspicious masses. No hydronephrosis. No calcifications. BLADDER: No masses. OTHER FINDINGS: No other significant finding. IMPRESSION: Unremarkable renal ultrasound. No hydronephrosis. TECHNICAL DOCUMENTATION: JOB ID: [id number] [employer]- All Rights Reserved Reading location - IP/workstation name: [email or web address]
== END ==
LOC: RAD 10:20
PROVIDERS: ATTEND Internal Medicine Nephrology
DX: N18.3 Chronic kidney disease, stage 3 (moderate) (principal)
CPT/HCPCS: 76770

== ENCOUNTER 2018-12-02 19:52 | Emergency (ER) | payer MEDICARE ==
[2018-12-02] MEDS ORDERED: ONDANSETRON HCL INJ/PF 4 MG/2 ML SDV IV ONE (20:43)
--- NOTE | 2018-12-02 20:45 | ER Document Report ---
ED Medical Screen (RME) - General Chief Complaint: Nausea/Vomiting Stated Complaint: VOMITING Time Seen by Provider: 12/02/18 20:42 Primary Care Provider: Ghanshyam ESPINO MD [Primary Care Provider] - Follow up as needed Mode of Arrival: Ambulatory Information source: Patient Notes: 68-year-old female presents to ED for vomiting most of the day. She states that she took her blood sugar last night before going to bed it was 94. She states she took her medicine with the bed when she got up this morning she was vomiting she took her sugar it was 179 so she took her 7 pills but did not take her insulin because she was vomiting. She states at 4 PM she woke up she was still vomiting. She figured she better come to the doctor because it was getting late and she needed to find it what was going on. She does have a history of [place] with a cardiac cath and 4 stents she also has diabetes type 2 cholesterol high blood pressure and coronary artery disease. States she also has a history of pancreatitis. She denies smoking drinking or doing any drugs. States she has not checked her blood sugar since this morning when it was 179. I have greeted and performed a rapid initial assessment of this patient. A comprehensive ED assessment and evaluation of the patient, analysis of test results and completion of medical decision making process will be conducted by an additional ED providers. TRAVEL OUTSIDE OF THE [place] IN LAST 30 DAYS: No - Related Data Allergies/Adverse Reactions: Sulfa (Sulfonamide Antibiotics) Allergy (Verified 09/12/18 13:36) Hives celecoxib [From Celebrex] Adverse Reaction (Intermediate, Verified 09/12/18 13:36) Hives Past Medical History - Social History Frequency of alcohol use: None Drug Abuse: None - Past Medical History Cardiac Medical History: Reports: Hx Hypercholesterolemia Denies: Hx Coronary Artery Disease, Hx Heart Attack, Hx Hypertension Pulmonary Medical History: Denies: Hx Asthma, Hx Bronchitis, Hx COPD, Hx Pneumonia Neurological Medical History: Denies: Hx Cerebrovascular Accident, Hx Seizures Endocrine Medical History: Reports: 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 Renal/ Medical History: Denies: Hx Peritoneal Dialysis GI Medical History: Reports: Hx Gastroesophageal Reflux Disease Musculoskeltal Medical History: Reports Hx Arthritis - all joints Psychiatric Medical History: Reports: Hx Depression Infectious Medical History: Past Surgical History: Reports: Hx Cholecystectomy, Hx Hysterectomy, Hx Orthopedic Surgery - ankle and bilateral knee replacements surgery - Immunizations Hx Diphtheria, Pertussis, Tetanus Vaccination: Yes Physical Exam - Vital signs Vitals: Temp Pulse Resp BP Pulse Ox 97.8 F 96 18 105/66 98 12/02/18 20:10 12/02/18 20:10 12/02/18 20:10 12/02/18 20:10 12/02/18 20:10 Course - Vital Signs Vital signs: Temp Pulse Resp BP Pulse Ox 97.8 F 96 18 105/66 98 12/02/18 20:10 12/02/18 20:10 12/02/18 20:10 12/02/18 20:10 12/02/18 20:10 Doctor's Discharge - Discharge Referrals: Ghanshyam ESPINO MD [Primary Care Provider] - Follow up as needed
[2018-12-02 21:19] LABS: ABSOLUTE BASOPHILS # (AUTO) 0.1 10^3/uL (0.0-0.2); ABSOLUTE EOSINOPHILS # (AUTO) 0.6 10^3/uL (0.0-0.6); ABSOLUTE LYMPHOCYTES (AUTO) 1.8 10^3/uL (0.5-4.7); ABSOLUTE MONOCYTES (AUTO) 0.9 10^3/uL (0.1-1.4); ABSOLUTE NEUT (AUTO) 9.3 10^3/uL (1.7-8.2); BASOPHILS % (AUTO) 0.5 % (0-2); EOSINOPHILS % (AUTO) 4.3 % (0-6); HEMATOCRIT 44.8 % (36.0-47.0); HEMOGLOBIN 15.4 g/dL (12.0-15.5); LYMPHOCYTES % (AUTO) 14.5 % (13-45); MEAN CORPUSCULAR HEMOGLOBIN 30.4 pg (27.0-33.4); MEAN CORPUSCULAR HGB CONC 34.4 g/dL (32.0-36.0); MEAN CORPUSCULAR VOLUME 88 fl (80-97); MONOCYTES % (AUTO) 7.1 % (3-13); PLATELET COUNT 391 10^3/uL (150-450); RED BLOOD COUNT 5.08 10^6/uL (3.72-5.28); RED CELL DISTRIBUTION WIDTH 13.7 % (11.5-14.0); SEGMENTED NEUTROPHILS % (AUTO) 73.6 % (42-78); TOTAL CELLS COUNTED % (AUTO) 100 %; WHITE BLOOD COUNT 12.7 10^3/uL (4.0-10.5)
[2018-12-02 21:23] LABS: APPEARANCE,URINE SLIGHTLY-CLOUDY; BILIRUBIN,URINE NEGATIVE (NEGATIVE); COLOR,URINE YELLOW; GLUCOSE, URINE NEGATIVE (NEGATIVE); KETONES,URINE NEGATIVE (NEGATIVE); LEUKOCYTE ESTERASE,URINE NEGATIVE (NEGATIVE); NITRITE,URINE NEGATIVE (NEGATIVE); PROTEIN,URINE NEGATIVE (NEGATIVE); URINE SPECIFIC GRAVITY 1.018; UROBILINOGEN,URINE NEGATIVE mg/dL (<2.0)
[2018-12-02 21:34] LABS: ALBUMIN 4.8 g/dL (3.5-5.0); ALKALINE PHOSPHATASE 79 U/L (38-126); ANION GAP 15 (5-19); ASPARTATE AMINO TRANSFERASE 24 U/L (14-36); BILIRUBIN,DIRECT 0.2 mg/dL (0.0-0.4); BILIRUBIN,TOTAL 0.9 mg/dL (0.2-1.3); BLOOD UREA NITROGEN 25 mg/dL (7-20); CALCIUM 10.5 mg/dL (8.4-10.2); CARBON DIOXIDE 25 mmol/L (22-30); CHLORIDE 99 mmol/L (98-107); GLUCOSE 147 mg/dL (75-110); POTASSIUM 3.9 mmol/L (3.6-5.0); TOTAL PROTEIN 7.9 g/dL (6.3-8.2)
[2018-12-03 00:35] VITALS: BP 103/57
== END 2018-12-03 00:39 | disposition left against medical advice (07) ==
LOC: ER 19:52
DX: R11.10 Vomiting, unspecified (principal); E11.9 Type 2 diabetes mellitus without complications; Z79.4 Long term (current) use of insulin; I25.10 Atherosclerotic heart disease of native coronary artery without angina pectoris; I10 Essential (primary) hypertension; I25.2 Old myocardial infarction; Z95.5 Presence of coronary angioplasty implant and graft; Z88.2 Allergy status to sulfonamides; Z53.20 Procedure and treatment not carried out because of patient's decision for unspecified reasons
CPT/HCPCS: 99281; 36415; 85025; 80053; 81001; J2405

== ENCOUNTER → 2018-12-04 | Outpatient (CLI) | payer MEDICARE ==
[2018-12-04 13:27] LABS: ABSOLUTE BASOPHILS # (AUTO) 0.1 10^3/uL (0.0-0.2); ABSOLUTE EOSINOPHILS # (AUTO) 0.5 10^3/uL (0.0-0.6); ABSOLUTE MONOCYTES (AUTO) 0.8 10^3/uL (0.1-1.4); ABSOLUTE NEUT (AUTO) 4.9 10^3/uL (1.7-8.2); BASOPHILS % (AUTO) 0.8 % (0-2); HEMATOCRIT 39.3 % (36.0-47.0); HEMOGLOBIN 13.9 g/dL (12.0-15.5); LYMPHOCYTES % (AUTO) 24.4 % (13-45); MEAN CORPUSCULAR HEMOGLOBIN 30.8 pg (27.0-33.4); MEAN CORPUSCULAR HGB CONC 35.4 g/dL (32.0-36.0); MEAN CORPUSCULAR VOLUME 87 fl (80-97); MONOCYTES % (AUTO) 9.3 % (3-13); PLATELET COUNT 338 10^3/uL (150-450); RED BLOOD COUNT 4.52 10^6/uL (3.72-5.28); RED CELL DISTRIBUTION WIDTH 13.2 % (11.5-14.0); SEGMENTED NEUTROPHILS % (AUTO) 59.5 % (42-78); TOTAL CELLS COUNTED % (AUTO) 100 %; WHITE BLOOD COUNT 8.2 10^3/uL (4.0-10.5)
[2018-12-04 13:53] LABS: ALBUMIN 4.3 g/dL (3.5-5.0); ANION GAP 12 (5-19); BLOOD UREA NITROGEN 26 mg/dL (7-20); CALCIUM 9.8 mg/dL (8.4-10.2); CARBON DIOXIDE 29 mmol/L (22-30); CHLORIDE 98 mmol/L (98-107); GLUCOSE 110 mg/dL (75-110); PHOSPHORUS 2.7 mg/dL (2.5-4.5); POTASSIUM 3.8 mmol/L (3.6-5.0)
[2018-12-04 15:52] LABS: APPEARANCE,URINE CLEAR; BILIRUBIN,URINE NEGATIVE (NEGATIVE); COLOR,URINE YELLOW; GLUCOSE, URINE NEGATIVE (NEGATIVE); KETONES,URINE NEGATIVE (NEGATIVE); LEUKOCYTE ESTERASE,URINE NEGATIVE (NEGATIVE); NITRITE,URINE NEGATIVE (NEGATIVE); PROTEIN,URINE NEGATIVE (NEGATIVE); URINE SPECIFIC GRAVITY 1.014
[2018-12-06 14:37] LABS: CREATININE URINE 109.2 mg/dL (Not Estab.)
[2018-12-06 19:02] LABS: MICROALBUMIN URINE <3.0 ug/mL (Not Estab.)
== END ==
LOC: OD 12:39
PROVIDERS: ATTEND Internal Medicine Nephrology
DX: I12.9 Hypertensive chronic kidney disease with stage 1 through stage 4 chronic kidney disease, or unspecified chronic kidney disease (principal); N18.3 Chronic kidney disease, stage 3 (moderate); E11.22 Type 2 diabetes mellitus with diabetic chronic kidney disease; I25.10 Atherosclerotic heart disease of native coronary artery without angina pectoris
CPT/HCPCS: 36415; 80069; 81001; 82043; 82570; 83970; 85025

== ENCOUNTER → 2019-01-10 | Outpatient (CLI) | payer MEDICARE ==
[2019-01-10 16:39] LABS: ABSOLUTE BASOPHILS # (AUTO) 0.1 10^3/uL (0.0-0.2); ABSOLUTE EOSINOPHILS # (AUTO) 0.7 10^3/uL (0.0-0.6); ABSOLUTE LYMPHOCYTES (AUTO) 2.3 10^3/uL (0.5-4.7); ABSOLUTE MONOCYTES (AUTO) 0.6 10^3/uL (0.1-1.4); BASOPHILS % (AUTO) 1.4 % (0-2); EOSINOPHILS % (AUTO) 7.6 % (0-6); HEMATOCRIT 40.1 % (36.0-47.0); HEMOGLOBIN 13.9 g/dL (12.0-15.5); LYMPHOCYTES % (AUTO) 26.6 % (13-45); MEAN CORPUSCULAR HEMOGLOBIN 30.2 pg (27.0-33.4); MEAN CORPUSCULAR HGB CONC 34.5 g/dL (32.0-36.0); MEAN CORPUSCULAR VOLUME 87 fl (80-97); MONOCYTES % (AUTO) 6.5 % (3-13); PLATELET COUNT 357 10^3/uL (150-450); RED BLOOD COUNT 4.59 10^6/uL (3.72-5.28); RED CELL DISTRIBUTION WIDTH 13.4 % (11.5-14.0); SEGMENTED NEUTROPHILS % (AUTO) 57.9 % (42-78); TOTAL CELLS COUNTED % (AUTO) 100 %; WHITE BLOOD COUNT 8.7 10^3/uL (4.0-10.5)
[2019-01-10 16:41] LABS: APPEARANCE,URINE CLEAR; BILIRUBIN,URINE NEGATIVE (NEGATIVE); COLOR,URINE YELLOW; GLUCOSE, URINE NEGATIVE (NEGATIVE); KETONES,URINE NEGATIVE (NEGATIVE); LEUKOCYTE ESTERASE,URINE NEGATIVE (NEGATIVE); NITRITE,URINE NEGATIVE (NEGATIVE); PROTEIN,URINE NEGATIVE (NEGATIVE); UROBILINOGEN,URINE NEGATIVE mg/dL (<2.0)
[2019-01-10 16:44] LABS: ANION GAP 9 (5-19); BLOOD UREA NITROGEN 28 mg/dL (7-20); CALCIUM 10.2 mg/dL (8.4-10.2); CARBON DIOXIDE 30 mmol/L (22-30); CHLORIDE 101 mmol/L (98-107); GLUCOSE 146 mg/dL (75-110)
[2019-01-12 11:37] LABS: CREATININE URINE 66.7 mg/dL (Not Estab.); MICROALBUMIN URINE <3.0 ug/mL (Not Estab.)
== END ==
LOC: OD 15:25
PROVIDERS: ATTEND Internal Medicine Nephrology
DX: I12.9 Hypertensive chronic kidney disease with stage 1 through stage 4 chronic kidney disease, or unspecified chronic kidney disease (principal); N18.3 Chronic kidney disease, stage 3 (moderate); E11.22 Type 2 diabetes mellitus with diabetic chronic kidney disease; N25.0 Renal osteodystrophy
CPT/HCPCS: 36415; 80048; 81001; 82043; 82570; 83970; 84100; 85025

== ENCOUNTER → 2019-04-11 | Outpatient (CLI) | payer MEDICARE, MEDICAID ==
[2019-04-11 12:06] LABS: APPEARANCE,URINE CLEAR; BILIRUBIN,URINE NEGATIVE (NEGATIVE); COLOR,URINE YELLOW; GLUCOSE, URINE NEGATIVE (NEGATIVE); KETONES,URINE NEGATIVE (NEGATIVE); LEUKOCYTE ESTERASE,URINE NEGATIVE (NEGATIVE); NITRITE,URINE NEGATIVE (NEGATIVE); PROTEIN,URINE NEGATIVE (NEGATIVE); URINE SPECIFIC GRAVITY 1.014; UROBILINOGEN,URINE NEGATIVE mg/dL (<2.0)
[2019-04-11 12:07] LABS: ABSOLUTE BASOPHILS # (AUTO) 0.1 10^3/uL (0.0-0.2); ABSOLUTE EOSINOPHILS # (AUTO) 0.6 10^3/uL (0.0-0.6); ABSOLUTE LYMPHOCYTES (AUTO) 2.2 10^3/uL (0.5-4.7); ABSOLUTE MONOCYTES (AUTO) 0.7 10^3/uL (0.1-1.4); ABSOLUTE NEUT (AUTO) 4.3 10^3/uL (1.7-8.2); BASOPHILS % (AUTO) 1.3 % (0-2); EOSINOPHILS % (AUTO) 7.4 % (0-6); HEMATOCRIT 39.1 % (36.0-47.0); HEMOGLOBIN 13.6 g/dL (12.0-15.5); LYMPHOCYTES % (AUTO) 27.7 % (13-45); MEAN CORPUSCULAR HEMOGLOBIN 30.1 pg (27.0-33.4); MEAN CORPUSCULAR HGB CONC 34.8 g/dL (32.0-36.0); MEAN CORPUSCULAR VOLUME 87 fl (80-97); MONOCYTES % (AUTO) 8.8 % (3-13); PLATELET COUNT 334 10^3/uL (150-450); RED BLOOD COUNT 4.52 10^6/uL (3.72-5.28); RED CELL DISTRIBUTION WIDTH 13.9 % (11.5-14.0); SEGMENTED NEUTROPHILS % (AUTO) 54.8 % (42-78); TOTAL CELLS COUNTED % (AUTO) 100 %; WHITE BLOOD COUNT 7.8 10^3/uL (4.0-10.5)
[2019-04-11 12:29] LABS: ANION GAP 7 (5-19); BLOOD UREA NITROGEN 23 mg/dL (7-20); CALCIUM 10.2 mg/dL (8.4-10.2); CARBON DIOXIDE 28 mmol/L (22-30); CHLORIDE 106 mmol/L (98-107); GLUCOSE 72 mg/dL (75-110); PHOSPHORUS 3.4 mg/dL (2.5-4.5); POTASSIUM 4.3 mmol/L (3.6-5.0)
[2019-04-12 16:37] LABS: CREATININE URINE 104.8 mg/dL (Not Estab.); MICROALBUMIN URINE <3.0 ug/mL (Not Estab.)
== END ==
LOC: OD 11:19
PROVIDERS: ATTEND Internal Medicine Nephrology
DX: E11.22 Type 2 diabetes mellitus with diabetic chronic kidney disease (principal); I12.9 Hypertensive chronic kidney disease with stage 1 through stage 4 chronic kidney disease, or unspecified chronic kidney disease; N18.3 Chronic kidney disease, stage 3 (moderate); N25.0 Renal osteodystrophy
CPT/HCPCS: 36415; 80048; 81001; 82043; 82306; 82570; 83970; 84100; 85025

== ENCOUNTER 2020-01-07 19:20 | Emergency (ER) | payer MEDICARE, MEDICAID ==
--- NOTE | 2020-01-07 20:39 | ER Document Report ---
ED Medical Screen (RME) - General Chief Complaint: Ankle Injury Stated Complaint: ANKLE INJURY Time Seen by Provider: 01/07/20 20:31 Primary Care Provider: Ghanshyam ESPINO MD [Primary Care Provider] - Follow up as needed Mode of Arrival: Ambulatory Information source: Patient Notes: 69-year-old female coming in today with left foot and ankle pain. She is got swelling along the medial aspect of her arch along the medial aspect of her foot. She has no history of trauma. She is worried she is having a gout attack. She does not have a history of gout in the past. General exam no acute distress Musculoskeletal: Soft tissue swelling moderate to the left medial ankle and left medial foot. Tender to palpate. No bony deformities. I have greeted and performed a rapid initial assessment of this patient. A comprehensive ED assessment and evaluation of the patient, analysis of test results and completion of the medical decision making process will be conducted by additional ED providers. TRAVEL OUTSIDE OF THE [place] 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
[2020-01-07] MEDS ORDERED: IBUPROFEN 600 MG TABLET PO ONE (20:59)
--- NOTE | 2020-01-07 21:44 | RADIOLOGY REPORT (SQ) ---
EXAM DESCRIPTION: X-ray, three views of the left ankle CLINICAL HISTORY: 69 years Female, pain and swelling COMPARISON: None. FINDINGS: There is mild soft tissue swelling adjacent to the medial malleolus. Well-corticated ossific densities are seen at the adjacent to both the medial malleolus and the tip of the fibula consistent with old trauma. No acute fracture is seen. Soft tissue ossification is also seen in the region of the deltoid ligament. There is osseous spurring of the calcaneus at the insertion of the plantar fascia and Achilles tendon. IMPRESSION: 1. Evidence of old trauma. 2. No acute process. No acute fracture.
--- NOTE | 2020-01-07 21:57 | RADIOLOGY REPORT (SQ) ---
EXAM DESCRIPTION: CLINICAL HISTORY: 69 years ,Female pain and swelling COMPARISON: None. TECHNIQUE: LEFT foot, Three view FINDINGS: No acute fractures or dislocations are identified. No osseous destructive lesions. No radiopaque foreign object noted. Metatarsus primus varus hallux valgus No significant ankle effusion noted. Suspect that lucency along the distal aspect of the distal first phalanx is artifactual secondary to normal bony architecture. IMPRESSION: No acute fracture or dislocation is identified.
[2020-01-08] MEDS ORDERED: HYDROCODONE/ACETAMINOPHEN 5-325 MG (6 TAB/ER DISP) PO PRN ×2 (00:33→01:14)
--- NOTE | 2020-01-08 00:34 | ER Document Report ---
ED General - General Chief Complaint: Foot Pain Stated Complaint: ANKLE INJURY Time Seen by Provider: 01/07/20 20:31 Primary Care Provider: Ghanshyam ESPINO MD [Primary Care Provider] - Follow up as needed Mode of Arrival: Ambulatory Information source: Patient Notes: 69-year-old female coming in today with left ankle and left foot pain and swelling. Think she has gout. She has no history of any injury to this area. TRAVEL OUTSIDE OF THE [place] IN LAST 30 DAYS: No - Related Data Allergies/Adverse Reactions: Sulfa (Sulfonamide Antibiotics) Allergy (Verified 01/07/20 20:58) Hives celecoxib [From Celebrex] Adverse Reaction (Intermediate, Verified 01/07/20 20:58) Hives Past Medical History - General Information source: Patient - Social History Smoking Status: Never Smoker Frequency of alcohol use: None Drug Abuse: None Family History: Reviewed & Not Pertinent - Past Medical History Cardiac Medical History: Reports: Hx Hypercholesterolemia Denies: Hx Coronary Artery Disease, Hx Heart Attack, Hx Hypertension Pulmonary Medical History: Denies: Hx Asthma, Hx Bronchitis, Hx COPD, Hx Pneumonia Neurological Medical History: Denies: Hx Cerebrovascular Accident, Hx Seizures Endocrine Medical History: Reports: 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 No chills. EENT: No eye redness. No eye pain. No ear pain. No sore throat. Cardiovascular: No chest pain. No palpitations. Respiratory: No cough. No shortness of breath. No respiratory distress. Gastrointestinal: No abdominal pain. No nausea, vomiting, or diarrhea. Genitourinary: Atraumatic. No lesions. No pain. No discharge. Musculoskeletal: Positive pain and swelling left foot and ankle Skin: No rash or lesions. Lymphatic: No swollen lymph nodes. Neurologic: No headache. No syncope. Psychiatric: No suicidal or homicidal ideation. Physical Exam - Vital signs Vitals: Temp Pulse Resp BP Pulse Ox 98.6 F 73 18 140/59 H 94 01/07/20 20:45 01/07/20 20:45 01/07/20 20:45 01/07/20 20:45 01/07/20 20:45 - Notes Notes: General: Well-developed, well-nourished. In no acute distress. Non-toxic appearing. Cardiac: Well-perfused. Regular rate and rhythm. No murmurs, rubs, or gallops. Pulmonary: No respiratory distress. No cyanosis. Bilateral lung fiels are clear to auscultation. Abdominal: Non-distended. Non-rigid. Bowels sounds are present in all four quadrants. No guarding or rebound. HEENT: Head is atraumatic. Conjunctivae not reddened. No tearing. PERRL. EOMI. Orbits atraumatic. No periorbital swelling or erythema. Oropharynx is without erythema, swelling, or exudates. Neck: Supple. No adenopathy. No meningismus. Dermatologic: Warm with good turgor. No rash. Atraumatic. Chest: Atraumatic. No chest wall tenderness to palpation. Musculoskeletal: Medial ankle and left medial foot mildly tender slightly red. Genitourinary: Examination deferred Neurologic: No gross neurologic deficits. Psychiatric: Normal mood. Course - Re-evaluation Re-evalutation: 01/08/20 00:31 X-rays are negative for acute injury. We will give her Medrol Dosepak for the swelling will give her [place] take-home pack - Vital Signs Vital signs: Temp Pulse Resp BP Pulse Ox 98.6 F 73 18 140/59 H 94 01/07/20 20:45 01/07/20 20:45 01/07/20 20:45 01/07/20 20:45 01/07/20 20:45 Discharge - Discharge Clinical Impression: Arthritis of foot Condition: Good Disposition: HOME, SELF-CARE Instructions: Ice & Elevation ([facility]), Arthritis ([facility]) Prescriptions: Methylprednisolone [Medrol Dosepack (4 mg/Tab) 21 Tab/Dosepak] 4 mg PO ASDIR PRN #21 tab.ds.pk PRN Reason: Referrals: Ghanshyam ESPINO MD [Primary Care Provider] - Follow up as needed
[2020-01-08] MEDS ORDERED: IBUPROFEN 600 MG TABLET ONE (01:15)
[2020-01-08 01:22] VITALS: BP 136/59
== END 2020-01-08 01:06 | disposition home or self-care (01) ==
LOC: ER 19:20
DX: M19.079 Primary osteoarthritis, unspecified ankle and foot (principal); M25.572 Pain in left ankle and joints of left foot; L53.9 Erythematous condition, unspecified; E11.9 Type 2 diabetes mellitus without complications; Z88.2 Allergy status to sulfonamides
CPT/HCPCS: 99284; 73610; 73630; A9270 ×2

== ENCOUNTER 2020-04-03 09:46 | Emergency (ER) | payer MEDICARE, MEDICAID ==
[2020-04-03] MEDS ORDERED: NORMAL SALINE 1000 ML 1,000 ML IV ONE ×2 (12:05→13:25)
--- NOTE | 2020-04-03 12:05 | ER Document Report ---
ED GI/ - General Chief Complaint: Nausea/Vomiting/Diarrhea Stated Complaint: NAUSEA VOMITING Time Seen by Provider: 04/03/20 11:54 Notes: CHIEF COMPLAINT: Nausea vomiting diarrhea for 3 days HPI: 69-year-old female presenting to the emergency department via EMS for evaluation of nausea vomiting and diarrhea for 3 days. No abdominal pain. No fever. No dysuria. Patient states that she did have Covid testing February 25 that was negative and also had a Covid test by EMS today that was negative. ROS: See HPI - all other systems were reviewed and are otherwise negative Constitutional: no fever Eyes: no drainage, no blurred vision ENT: no runny nose, no sore throat Cardiovascular: no chest pain Resp: no SOB, no cough GI: + vomiting, + diarrhea, no abdominal pain, positive nausea : no dysuria Integumentary: no rash Allergy: no hives Musculoskeletal: no extremity pain or swelling Neurological: no numbness/tingling, no weakness MEDICATIONS: I agree with the patient medications as charted by the RN. ALLERGIES: I agree with the allergies as charted by the RN. PAST MEDICAL HISTORY/PAST SURGICAL HISTORY: Reviewed and agree as charted by RN. SOCIAL HISTORY: Reviewed and agree as charted by RN. FAMILY HISTORY: No significant familial comorbid conditions directly related to patient complaint EXAM: Reviewed vital signs as charted by RN. CONSTITUTIONAL: Alert and oriented and responds appropriately to questions. Well-appearing; well-nourished HEAD: Normocephalic; atraumatic EYES: PERRL; Conjunctivae clear, sclerae non-icteric ENT: normal nose; no rhinorrhea; moist mucous membranes; pharynx without lesions noted, no uvula edema or deviation, no tonsillar hypertrophy, phonation normal NECK: Supple without meningismus; non-tender; no cervical lymphadenopathy, no masses CARD: RRR; no murmurs, no clicks, no rubs, no gallops; symmetric distal pulses RESP: Normal chest excursion without splinting or tachypnea; breath sounds clear and equal bilaterally; no wheezes, no rhonchi, no rales, pulse oximetry 97% on room air not hypoxic ABD/GI: Obese, normal bowel sounds; non-distended; soft, non-tender, no rebound, no guarding; no palpable organomegaly or masses. BACK: The back appears normal and is non-tender to palpation, there is no CVA tenderness EXT: Normal ROM in all joints; non-tender to palpation; no cyanosis, no effusions, no edema SKIN: Normal color for age and race; warm; dry; good turgor; no acute lesions noted NEURO: Moves all extremities equally; Motor and sensory function intact PSYCH: The patient's mood and manner are appropriate. Grooming and personal hygiene are appropriate. MDM: 69-year-old female presenting with nausea vomiting and diarrhea over the last 3 days. She has not had fever. She had a negative Covid test by EMS today. She has no reproducible abdominal pain at this time suggesting SBO or acute colitis. Will obtain baseline screening labs hydrate patient and reassess abdomen The patient was evaluated during the global COVID-19 pandemic and that diagnosis was suspected/considered upon their initial presentation. Their evaluation, treatment and testing was consistent with current guidelines for patients who present with complaints or symptoms that may be related to COVID-19 TRAVEL OUTSIDE OF THE [place] IN LAST 30 DAYS: No - Related Data Allergies/Adverse Reactions: Sulfa (Sulfonamide Antibiotics) Allergy (Verified 01/07/20 20:58) Hives celecoxib [From Celebrex] Adverse Reaction (Intermediate, Verified 01/07/20 20:58) Hives Past Medical History - Social History Smoking Status: Unknown if Ever Smoked Family History: Reviewed & Not Pertinent - Past Medical History Cardiac Medical History: Reports: Hx Hypercholesterolemia Denies: Hx Coronary Artery Disease, Hx Heart Attack, Hx Hypertension Pulmonary Medical History: Denies: Hx Asthma, Hx Bronchitis, Hx COPD, Hx Pneumonia Neurological Medical History: Denies: Hx Cerebrovascular Accident, Hx Seizures Endocrine Medical History: Reports: 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 Renal/ Medical History: Denies: Hx Peritoneal Dialysis GI Medical History: Reports: Hx Gastroesophageal Reflux Disease Musculoskeletal Medical History: Reports Hx Arthritis - all joints Psychiatric Medical History: Reports: Hx Depression Infectious Medical History: Past Surgical History: Reports: Hx Cholecystectomy, Hx Hysterectomy, Hx Orthopedic Surgery - ankle and bilateral knee replacements surgery - Immunizations Hx Diphtheria, Pertussis, Tetanus Vaccination: Yes Hx Pneumococcal Vaccination: 12/26/10 Physical Exam - Vital signs Vitals: Temp Pulse Resp BP Pulse Ox 98.4 F 89 16 121/60 95 04/03/20 09:58 04/03/20 09:58 04/03/20 09:58 04/03/20 09:58 04/03/20 09:58 Course - Re-evaluation Re-evalutation: 04/03/20 15:14 Patient is noted to have urinary tract infection. Will give Rocephin in the emergency department keep patient on Keflex at home. He patient on Zofran at home. Follow-up PCP. Low suspicion for sepsis at this time. Patient continues to have a benign abdomen on reexam - Vital Signs Vital signs: Temp Pulse Resp BP Pulse Ox 98.4 F 89 16 121/60 95 04/03/20 09:58 04/03/20 09:58 04/03/20 09:58 04/03/20 09:58 04/03/20 09:58 - Laboratory Results Result Diagrams: 04/03/20 12:38 04/03/20 12:38 Laboratory Results Interpreted: 04/03/20 04/03/20 04/03/20 12:38 12:38 14:10 WBC 12.2 H Lymph % (Auto) 6.5 L Absolute Neuts (auto) 10.5 H Seg Neutrophils % 85.7 H Sodium 129.4 L Chloride 96 L BUN 21 H Creatinine 1.52 H Est GFR ( Amer) 41 L Est GFR (MDRD) Non-Af 34 L Glucose 370 H Alkaline Phosphatase 149 H Total Protein 6.1 L Urine Protein 100 H Urine Glucose (UA) >=500 H Urine Ketones TRACE H Urine Blood SMALL H Ur Leukocyte Esterase MODERATE H Critical Laboratory Results Reviewed: No Critical Results - Radiology Results Critical Radiology Results Reviewed: No Critical Results Discharge - Discharge Clinical Impression: Nausea vomiting and diarrhea, Dehydration UTI (urinary tract infection) Qualifiers: Urinary tract infection type: acute cystitis Hematuria presence: with hematuria Qualified Code(s): N30.01 - Acute cystitis with hematuria Condition: Stable Disposition: HOME, SELF-CARE Instructions: Urinary Tract Infection ([facility]) Additional Instructions: Continue to hydrate well at home. Take Keflex to treat the urinary infection. Take Zofran for nausea vomiting. Follow-up with your primary care provider for reevaluation of symptoms call for appointment. Return to the emergency department for onset of abdominal pain, fever, recurrent or worsening vomiting Prescriptions: Cephalexin Monohydrate [Keflex 500 mg Capsule] 500 mg PO Q6H 7 Days #28 capsule Ondansetron [Zofran Odt 4 mg Tablet] 1 - 2 tab PO Q4H PRN #15 tab.rapdis PRN Reason: For Nausea/Vomiting
[2020-04-03] MEDS ORDERED: KETOROLAC TROMETHAMINE INJ/PF 30 MG/1 ML SDV IV ONE (12:06)
[2020-04-03] MEDS ORDERED: ONDANSETRON HCL INJ/PF 4 MG/2 ML SDV IV ONE ×2 (12:06→18:37)
[2020-04-03 12:57] LABS: ABSOLUTE LYMPHOCYTES (AUTO) 0.8 10^3/uL (0.5-4.7); ABSOLUTE MONOCYTES (AUTO) 0.9 10^3/uL (0.1-1.4); ABSOLUTE NEUT (AUTO) 10.5 10^3/uL (1.7-8.2); BASOPHILS % (AUTO) 0.3 % (0-2); EOSINOPHILS % (AUTO) 0.1 % (0-6); HEMATOCRIT 38.6 % (36.0-47.0); HEMOGLOBIN 13.1 g/dL (12.0-15.5); LYMPHOCYTES % (AUTO) 6.5 % (13-45); MEAN CORPUSCULAR HEMOGLOBIN 29.6 pg (27.0-33.4); MEAN CORPUSCULAR VOLUME 87 fl (80-97); MONOCYTES % (AUTO) 7.4 % (3-13); PLATELET COUNT 280 10^3/uL (150-450); RED BLOOD COUNT 4.43 10^6/uL (3.72-5.28); RED CELL DISTRIBUTION WIDTH 13.9 % (11.5-14.0); SEGMENTED NEUTROPHILS % (AUTO) 85.7 % (42-78); TOTAL CELLS COUNTED % (AUTO) 100 %; WHITE BLOOD COUNT 12.2 10^3/uL (4.0-10.5)
[2020-04-03 13:19] LABS: ALBUMIN 3.5 g/dL (3.5-5.0); ALKALINE PHOSPHATASE 149 U/L (38-126); ANION GAP 8 (5-19); ASPARTATE AMINO TRANSFERASE 31 U/L (14-36); BILIRUBIN,DIRECT 0.3 mg/dL (0.0-0.4); BILIRUBIN,TOTAL 0.9 mg/dL (0.2-1.3); BLOOD UREA NITROGEN 21 mg/dL (7-20); CALCIUM 9.1 mg/dL (8.4-10.2); CARBON DIOXIDE 25 mmol/L (22-30); CHLORIDE 96 mmol/L (98-107); GLUCOSE 370 mg/dL (75-110); POTASSIUM 4.4 mmol/L (3.6-5.0); TOTAL PROTEIN 6.1 g/dL (6.3-8.2)
[2020-04-03 15:03] LABS: APPEARANCE,URINE CLOUDY; BILIRUBIN,URINE NEGATIVE (NEGATIVE); GLUCOSE, URINE >=500 mg/dL (NEGATIVE); KETONES,URINE TRACE mg/dL (NEGATIVE); LEUKOCYTE ESTERASE,URINE MODERATE (NEGATIVE); NITRITE,URINE NEGATIVE (NEGATIVE); PROTEIN,URINE 100 mg/dL (NEGATIVE); URINE SPECIFIC GRAVITY 1.024; UROBILINOGEN,URINE NEGATIVE mg/dL (<2.0)
[2020-04-03 15:04] LABS: COLOR,URINE DARK YELLOW
[2020-04-03] MEDS ORDERED: CEFTRIAXONE 1 GM/D5W RTU 1 GM/50 ML RTUPB IV ONE (15:13)
[2020-04-03] MEDS ORDERED: LOPERAMIDE HCL 2 MG CAPSULE PO ONE (16:45)
[2020-04-03] MEDS ORDERED: OXYCODONE-ACETAMINOPHEN 5-325 MG TABLET PO ONE (18:30)
[2020-04-03] MEDS ORDERED: NORMAL SALINE 500 ML IV ONE (18:38)
[2020-04-03] MEDS ORDERED: MORPHINE SULFATE 10 MG/ML INJ IV ONE (18:42)
--- NOTE | 2020-04-03 20:59 | RADIOLOGY REPORT (SQ) ---
EXAM DESCRIPTION: CT ABDOMEN PELVIS WITH IV CONTRAST COMPLETED DATE/TME: 04/03/2020 20:16 CLINICAL HISTORY: 69 years, Female, diarrhea vomiting COMPARISON: CT from 09/12/2018. TECHNIQUE: 99 mL of Omnipaque 300. Sagittal coronal reconstruction. Images stored on PACS. All CT scanners at this facility use dose modulation, iterative reconstruction, and/or weight based dosing when appropriate to reduce radiation dose to as low as reasonably achievable (ALARA). FINDINGS: Lung bases without acute findings. Partially visualized right mid lung nodule possibly calcified is unchanged since 09/12/2018. Suspected mild fatty liver. Cholecystectomy. No suspicious biliary dilatation. Spleen, pancreas, adrenal glands, aorta, regions are unremarkable. Mild to moderate atherosclerotic aorta without dilatation narrowing. Mild narrowing at the origin of the celiac artery unchanged. No suspicious para-aortic adenopathy. Kidneys without acute findings. Stomach and small bowel loops are unremarkable. Suspected subtle changes of pancolitis. Surgical clips adjacent to the cecum possibly previous appendectomy. Facet disease in lower lumbar spine. CT of the pelvis demonstrates a subtle colitis in the rectum and sigmoid. Urinary bladder mildly distended. Absent uterus. Adnexa not enlarged. No adenopathy. IMPRESSION: 1. Suspected mild [place] colitis. 2. Partially visualized right mid lobe nodule, probably unchanged and benign in nature. 3. Mild atherosclerotic disease. Greater involvement the origin of celiac artery. 4. Facet disease in lower lumbar spine.
[2020-04-03 23:40] VITALS: BP 158/67
[2020-04-04 01:30] LABS: C DIFFICILE GDH NEGATIVE (NEGATIVE)
== END 2020-04-04 00:40 | disposition home or self-care (01) ==
LOC: ER 09:46
DX: K52.9 Noninfective gastroenteritis and colitis, unspecified (principal); N30.01 Acute cystitis with hematuria; R11.2 Nausea with vomiting, unspecified; E86.0 Dehydration; R51.9 Headache, unspecified; R68.83 Chills (without fever); R91.1 Solitary pulmonary nodule; I70.8 Atherosclerosis of other arteries; M48.9 Spondylopathy, unspecified; E11.9 Type 2 diabetes mellitus without complications; Z79.84 Long term (current) use of oral hypoglycemic drugs; Z20.822 Contact with and (suspected) exposure to COVID-19; Z88.2 Allergy status to sulfonamides
CPT/HCPCS: 96376; 99285; 96361; 96375; 96365; 36415; 87086; 83690; 85025; 0202U ×23; 87088; 80053; 81001; 87186; 87324; 87449; 74177; A9270; J1885; J2270; J2405; J7030; J7040; J0696